=== PATIENT | male | born 1990 | race African-American/Black ===

== ENCOUNTER 2021-10-19 17:31 | Inpatient (IN) | payer SELFPAY ==
[2021-10-19] VITALS (12 sets, daily range): BP systolic 164–252; BP diastolic 120–185; PULSE 95–120; RESP 16–22; TEMP 36.6–36.9; O2SAT 91–98; BMI 34.4
--- NOTE | 2021-10-19 18:03 | ECG_ITS ---
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 Measurements Intervals [place] Rate: 110 P: 54 [place]: 153 QRS: 49 QRSD: 102 T: 198 QT: 364 QTc: 493 Interpretive Statements SINUS TACHYCARDIA LEFT ATRIAL ENLARGEMENT [-0.15mV P-WAVE IN V1/V2] NONSPECIFIC ST & T-WAVE ABNORMALITY No previous ECG available for comparison Electronically Signed On 10-19-2021 21:31:52 MATHEMATICS ACADEMIC CHAIR by Hillary Aguilar M.D. [id number]
--- NOTE | 2021-10-19 18:03 | XRR_ITS ---
PROCEDURE INFORMATION: Exam: XR Chest Exam date and time: 10/19/2021 6:03 PM Age: 31 years old Clinical indication: Chest wall pain; Additional info: SOB TECHNIQUE: Imaging protocol: XR of the chest. Views: 1 view. COMPARISON: No relevant prior studies available. FINDINGS: Lungs: See Heart/Mediastinum finding. Pleural spaces: Unremarkable. No pleural effusion. No pneumothorax. Heart/Mediastinum: Cardiomegaly and mild interstitial edema. Bones/joints: Unremarkable. XR/XR chest 1V portable [id number] IMPRESSION: Cardiomegaly and mild interstitial edema.
--- NOTE | 2021-10-19 18:09 | PC.NURSE ---
UNABLE TO OBTAIN B/P, UPDATED PRIMARY RN AND PHYSICIAN
--- NOTE | 2021-10-19 18:13 | ED_ITS ---
HPI - COVID General: Chief Complaint: COVID symptoms Stated Complaint: sob, congestion,dizzy,cough had covid 3 wks ago Time Seen by Provider: 10/19/21 18:01 Source: patient Mode of arrival: ambulatory Limitations: no limitations Triage information: Has fever, cough or shortness of breath . Exposure to COVID + person last 14 days History of Present Illness: 31-year-old male states that he was diagnosed with Covid 3 weeks ago. States he was doing and better he states he started having increasing shortness of breath of last 2 days he states much worse at night has been having wheezing and exertional dyspnea denies any fever denies any cough. No history of asthma has a history of high blood pressure denies any vomiting diarrhea and denies any hypoxia. COVID 19 common symptoms: positive dyspnea; negative fever(s), chills, body aches, headache(s), throat pain, nausea, vomiting or diarrhea COVID 19 other sytmptoms: negative chest pain COVID Results: No Data to Display Review of Systems Const: Denies: fever(s), chills, body aches or change in appetite Eyes: Denies: blurry vision or eye discomfort ENMT: Denies: throat pain or dental pain Card: Denies: chest pain Resp: Reports: dyspnea and wheezing GI: Denies: abdominal pain, nausea, vomiting or diarrhea : Denies: dysuria Musc: Denies: neck pain or back pain Skin/Breast: Denies: rash Neuro: Denies: headache(s) Psych: Denies: depression Suleman/Lymph: Denies: easy bruising All/Imm: Denies: urticaria PFSH ED PFSH: Medical History COVID-19 Social History Smoking and tobacco status: never smoked Substance/Drug Use: never Physical Exam Const: COMMON NORMALS: no acute distress, patient oriented x3 and healthy appearing HENMT: COMMON NORMALS: normocephalic and atraumatic HEAD & SCALP: normocephalic and atraumatic Eye: COMMON NORMALS: Equal, round and reactive pupils present and EOMs intact bilaterally PUPIL: Yes Equal, round and reactive pupils present Neck/C-Spine: COMMON NORMALS: full ROM and supple Chest: COMMONS NORMALS: normal inspection of the chest and normal palpation of entire chest wall Resp: COMMON NORMALS: normal respiratory effort, No retractions and No use of accessory muscles AUSCULTATION: wheezes Cardio: COMMON NORMALS: regular rate, regular rhythm and No murmurs present (Cardio) RATE: regular rate RHYTHM: regular rhythm GI: COMMON NORMALS: Normal to inspection, nondistended, normoactive bowel sounds present, Soft to palpation, non-tender and no masses PALPATION: Yes Soft to palpation Extremity: COMMON NORMALS: normal to inspection and full ROM Neuro: COMMON NORMALS: patient oriented x3, moves all extremities and no focal motor deficits Psych: COMMON NORMALS: mental status grossly normal, Normal thought process present and cooperative THOUGHT PROCESS: Normal thought process present Skin: COMMON NORMALS: no rashes or lesions noted and no wounds GENERAL SKIN EXAM: no rashes or lesions noted Course Vital Signs: Vital signs: Vital Signs Temperature 97.8 F 10/19/21 20:45 Pulse Rate 120 H 10/19/21 20:45 Respiratory Rate 18 10/19/21 20:45 Blood Pressure 251/170 10/19/21 20:45 Pulse Oximetry 97 10/19/21 20:45 MDM - COVID MDM Narrative Medical decision making narrative: Patient presents here with hypertensive emergency likely chronic hypertension causing his cardiomegaly dyspnea slight acute kidney injury does have elevated troponin as well been given him labetalol blood pressure is improving CT shows no signs of pulmonary embolism does have cardiomegaly spoke to hospitalist will admit at this time. Lab Data Result diagrams: 10/19/21 18:45 10/19/21 18:45 Labs: Radiology Impressions Chest X-Ray 10/19/21 18:03 IMPRESSION: Cardiomegaly and mild interstitial edema. Chest CTA 10/19/21 19:19 IMPRESSION: 1. Negative for pulmonary embolus or airspace infiltrate. 2. Cardiomegaly. 3. Scattered prominent nonspecific mediastinal lymph nodes measuring 2.1 cm, nonspecific. Laboratory Results WBC 6.3 10^3/uL (4.0-10.0) 10/19/21 18:45 RBC 5.00 10^6/uL (4.1-5.3) 10/19/21 18:45 Hgb 11.7 g/dL (11.7-16.6) 10/19/21 18:45 Hct 38.1 % (42.0-52.0) L 10/19/21 18:45 MCV 76.2 fl (80-94) L 10/19/21 18:45 MCH 23.4 pg (28.0-34.0) L 10/19/21 18:45 MCHC 30.7 g/dL (30.0-36.0) 10/19/21 18:45 RDW 18.3 % (12.1-15.1) H 10/19/21 18:45 Plt Count 305 10^3/cmm (130-400) 10/19/21 18:45 MPV 11.0 fL (7.4-10.4) H 10/19/21 18:45 Neut % (Auto) 68.6 % 10/19/21 18:45 Lymph % (Auto) 22.7 % 10/19/21 18:45 Milam % (Auto) 6.2 % 10/19/21 18:45 Eos % (Auto) 1.4 % 10/19/21 18:45 Baso % (Auto) 0.6 % 10/19/21 18:45 Neut # (Auto) 4.28 10^3/uL (1.8-7.7) 10/19/21 18:45 Lymph # (Auto) 1.4 10^3/uL (0.8-4.8) 10/19/21 18:45 Milam # (Auto) 0.4 10^3/uL (0.2-0.9) 10/19/21 18:45 Eos # (Auto) 0.1 10^3/uL (0.0-0.8) 10/19/21 18:45 Baso # (Auto) 0.0 10^3/uL (0.0-0.1) 10/19/21:45 Nucleated RBC % (auto) 0.3 % 10/19/21:45 Nucleated RBCs # 0.0 /100WBC 10/19/21 18:45 PT 14.10 SECONDS (12.1-14.9) 10/19/21 18:45 INR 1.06 (0.8-1.2) 10/19/21 18:45 D-Dimer 1.89 ug/mIFEU (0-0.59) H 10/19/21 18:45 Sodium 137 mmol/L (136-145) 10/19/21 18:45 Potassium 4.4 mmol/L (3.5-5.1) 10/19/21 18:45 Chloride 99 mmol/L (98-107) 10/19/21 18:45 Carbon Dioxide 25 mmol/L (22-29) 10/19/21 18:45 Anion Gap 17.4 (5-19) 10/19/21 18:45 BUN 16 mg/dL (6-20) 10/19/21 18:45 Creatinine 1.9 mg/dL (0.7-1.2) H 10/19/21 18:45 GFR Calculation 50.6 mL/min (90-130) L 10/19/21 18:45 Glucose 121 mg/dL (65-115) H 10/19/21 18:45 Calculated Osmolality 286 mOsm/kg (285-295) 10/19/21 18:45 Calcium 9.9 mg/dL (8.5-10.5) 10/19/21 18:45 Total Bilirubin 0.8 mg/dL (0.15-1.2) 10/19/21 18:45 AST 32 U/L (0-40) 10/19/21 18:45 ALT 66 U/L (0-41) H 10/19/21 18:45 Alkaline Phosphatase 100 IU/L (40-130) 10/19/21 18:45 Troponin T Baseline 64 ng/L (0-15) H 10/19/21 18:45 Troponin T 120 Minute 55.53 ng/L (0-15) H 10/19/21 20:47 Delta Troponin T -8.47 ABS# (0-10) L 10/19/21 20:47 NT-Pro-B Natriuret Pep 5733 pg/mL (0-125) H 10/19/21 18:45 Total Protein 7.0 g/dL (6.6-8.7) 10/19/21 18:45 Albumin 3.7 g/dL (3.5-5.2) 10/19/21 18:45 Globulin 3.3 g/dL (1.3-4.6) 10/19/21 18:45 COVID Results: No Data to Display Imaging Data CXR: Radiologist's impression: Cardiomegaly and mild interstitial edema EKG Data EKG 1: Attestation: I personally reviewed and interpreted this EKG as follows: EKG interpretation date: 10/19/21 EKG interpretation time: 19:05 Interpretation: sinus tach hr [address] or t wave abnormalities qrs 102 qtc 429 EKG 2: Attestation: I personally reviewed and interpreted this EKG as follows: EKG interpretation date: 10/19/21 EKG interpretation time: 20:12 Interpretation: sinus tach hr [address] or twave abnormalities LVH noted qrs 101 qtc 432 Critical Care Time Critical Care Time: Critical Care Time: Yes Total Critical Care Time: 35 Attestation: The high probability of a clinically significant, sudden or life threatening deterioration of the patient's [cv] system(s) required my full and direct attention, intervention and personal management. The critical care time is as shown. This time is in addition to time spent performing any reported procedures but includes the following: [x] Data and vital sign review and interpretation [x] Patient assessment, examination and intervention [x] Documentation [x] Medication orders and management Discharge Plan Discharge Patient Disposition: Admitted As Inpatient Clinical Impression: Hypertensive emergency, Dyspnea, Cardiomegaly Condition: Stable Coding Level of Care Code ED Gastroenterology Manager for Chg Fwd Exam Comprehensive
[2021-10-19] MEDS: ipratropium-albuterol 3 mL Neb INHALATION (18:44)
[2021-10-19 18:59] LABS: Basophils % 0.6 %; Eosinophils # 0.1 10^3/uL (0.0-0.8); Eosinophils % 1.4 %; Hematocrit 38.1 % (42.0-52.0); Hemoglobin 11.7 g/dL (11.7-16.6); Lymphocytes # 1.4 10^3/uL (0.8-4.8); Lymphocytes % 22.7 %; Mean Corpuscular HGB Conc 30.7 g/dL (30.0-36.0); Mean Corpuscular Hemoglobin 23.4 pg (28.0-34.0); Mean Corpuscular Volume 76.2 fl (80-94); Monocytes # 0.4 10^3/uL (0.2-0.9); Monocytes % 6.2 %; Neutrophils # 4.28 10^3/uL (1.8-7.7); Neutrophils % 68.6 %; Nucleated Red Blood Cells % 0.3 %; Platelet Count 305 10^3/cmm (130-400); Red Cell Distribution Width 18.3 % (12.1-15.1); White Blood Count 6.3 10^3/uL (4.0-10.0)
[2021-10-19 19:10] LABS: INR 1.06 (0.8-1.2)
[2021-10-19 19:13] LABS: D Dimer 1.89 ug/mIFEU (0-0.59)
--- NOTE | 2021-10-19 19:19 | CTR_ITS ---
PROCEDURE INFORMATION: Exam: CTA Chest With Contrast Exam date and time: 10/19/2021 7:19 PM Age: 31 years old Clinical indication: Shortness of breath; Patient HX: Post covid C/O SOB TECHNIQUE: Imaging protocol: Computed tomographic angiography of the chest with contrast. 3D rendering (Not supervised by radiologist): MIP and/or 3D reconstructed images were created by the technologist. Radiation optimization: All CT scans at this facility use at least one of these dose optimization techniques: automated exposure control; mA and/or kV adjustment per patient size (includes targeted exams where dose is matched to clinical indication); or iterative reconstruction. Contrast material: VISI 320; Contrast volume: 190 ml; Contrast route: INTRAVENOUS (IV); COMPARISON: CR (CHEST, ) 10/19/2021 7:10 PM RADIATION DOSE METRICS: Total DLP (mGy-cm): 568.24 FINDINGS: Pulmonary arteries: Normal. No pulmonary emboli. Aorta: Unremarkable. No aortic aneurysm. No aortic dissection. Lungs: Unremarkable. No consolidation. No masses. Pleural spaces: Unremarkable. No pneumothorax. No pleural effusion. Heart: Cardiomegaly. Lymph nodes: Scattered prominent nonspecific mediastinal lymph nodes measuring 2.1 cm, nonspecific. Bones/joints: Unremarkable. No acute fracture. Soft tissues: Unremarkable. CT/CT angio chest PE protcl [id number] IMPRESSION: 1. Negative for pulmonary embolus or airspace infiltrate. 2. Cardiomegaly. 3. Scattered prominent nonspecific mediastinal lymph nodes measuring 2.1 cm, nonspecific.
[2021-10-19 19:25] LABS: Alanine Aminotransferase 66 U/L (0-41); Albumin Level 3.7 g/dL (3.5-5.2); Alkaline Phosphatase 100 IU/L (40-130); Anion Gap 17.4 (5-19); Aspartate Amino Transferase 32 U/L (0-40); Blood Urea Nitrogen 16 mg/dL (6-20); Calcium 9.9 mg/dL (8.5-10.5); Carbon Dioxide 25 mmol/L (22-29); Chloride 99 mmol/L (98-107); Globulin 3.3 g/dL (1.3-4.6); Glomerular Filtration Rate 50.6 mL/min (90-130); Glucose 121 mg/dL (65-115); NT Pro B Type Natriuretic Pept 5733 pg/mL (0-125); Osmolality Calculated 286 mOsm/kg (285-295); Potassium 4.4 mmol/L (3.5-5.1); Sodium 137 mmol/L (136-145); Total Bilirubin 0.8 mg/dL (0.15-1.2)
--- NOTE | 2021-10-19 19:29 | ECG_ITS ---
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 Measurements Intervals [place] Rate: 111 P: 53 [place]: 159 QRS: 55 QRSD: 101 T: 214 QT: 366 QTc: 499 Interpretive Statements SINUS TACHYCARDIA POSSIBLE RIGHT ATRIAL ENLARGEMENT [0.25mV P-WAVE] POSSIBLE LEFT ATRIAL ENLARGEMENT [-0.1mV P-WAVE IN V1/V2] LEFT VENTRICULAR HYPERTROPHY AND ST-T CHANGE [VOLTAGE CRITERIA PLUS ST/T ABNORMALITY] Compared to ECG 10/19/2021 19:05:55 Left ventricular hypertrophy now present ST (T wave) deviation now present T-wave abnormality no longer present Electronically Signed On 10-19-2021 21:26:32 HEARING CARE PROFESSIONAL by Hillary Aguilar M.D. [id number]
[2021-10-19 19:49] LABS: Troponin(5th) Baseline 64 ng/L (0-15)
[2021-10-19] MEDS: hyDRALAzine 20 mg/mL INJ 1 mL IVP (20:01)
[2021-10-19] MEDS: FUROsemide 10 mg/mL SDV 4mL 40 MG IVP (20:02)
[2021-10-19] MEDS: ondansetron 2 mg/ML SDV 2 mL 4 MG IVP (20:02)
[2021-10-19] MEDS: morphine 4 mg/mL SDV 1 mL IVP (20:02)
[2021-10-19] MEDS: iodixanol 320 mg/mL 100mL Btl IV (20:40)
[2021-10-19 21:11] LABS: Troponin 5 2HR 55.53 ng/L (0-15)
[2021-10-19] MEDS: labetalol 5 mg/mL SDV 20mL 10 MG IVP (21:13)
[2021-10-19] MEDS: nitroglycerin 0.4 mg sublingual Tablet SUBLINGUAL (21:13)
--- NOTE | 2021-10-19 21:29 | ECG_ITS ---
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 Measurements Intervals [place] Rate: 91 P: 19 [place]: 147 QRS: 54 QRSD: 100 T: 187 QT: 402 QTc: 497 Interpretive Statements SINUS RHYTHM LEFT VENTRICULAR HYPERTROPHY AND ST-T CHANGE [VOLTAGE CRITERIA PLUS ST/T ABNORMALITY] Compared to ECG 10/19/2021 20:12:27 Sinus tachycardia no longer present ST (T wave) deviation still present Electronically Signed On 10-21-2021 0:12:16 AUTO MACHINIST by Bonnie Jc M.D. [id number]
--- NOTE | 2021-10-19 21:57 | P.HP_ITS ---
Providers/Chief Complaint Chief Complaint: sob, congestion,dizzy,cough had covid 3 wks ago History of Present Illness Mona Yuan is a 31 year old male with a past medical history of hype rtension, recent history of COVID-19 infection, who presents to [facility] due to increasing shortness of breath, chest pain, lightheadedness. Patient tells me that he tested positive for Covid over 2 weeks ago, since He has been experiencing increasing shortness of breath, increasing shortness of breath with exertion, and substernal chest pain. He also been experiencing increased lower extremity edema. Denies any cardiovascular history, no history of CVA, chest pain is typically substernal, nonradiating, lasting a few minutes, associate with shortness of breath and lightheadedness. No diaphoresis. Denies any slurred speech, no paresthesias, no focal weakness. Denies smoking. No history of drug use. No history of alcohol use. Patient presented to [facility] was found to have hypertensive emergency with baseline troponin of 66, evidence of LVH, nonspecific ST-T wave changes, no acute ST elevation, BNP 5733, CTA no pulmonary embolism, cardiomegaly, blood pressure on admission 252/185, was given nitroglycerin, labetalol, Lasix, currently blood pressure 164 /120. Review of Systems Const: Denies: fever(s), chills, fatigue or malaise Eyes: Denies: change in vision or blurry vision ENMT: Denies: nasal congestion Card: Reports: chest pain, edema and dyspnea on exertion Resp: Reports: dyspnea; Denies: productive cough, non-productive cough or wheezing GI: Denies: abdominal pain, nausea, vomiting, hematemesis, diarrhea, const ipation, hematochezia or melena : Denies: flank pain, difficulty urinating, dysuria or urinary frequency Musc: Denies: neck pain or back pain Skin/Breast: Denies: rash Neuro: Denies: headache(s), dizziness or vertigo Psych: Denies: anxiety or depression Endo: Denies: polyuria or polydipsia Medications/Allergies Allergies Allergy/AdvReac Type Severity Reaction Status Date / Time kiwi Allergy ALGY-Anaphy Verified 10/19/21 17:43 laxis PFSH Acute PFSH: Medical History COVID-19 Social History Smoking and tobacco status: never smoked Substance/Drug Use: never Vitals/I&O/Wt Last Vital Signs Temp 98.1 F 10/19/21 21:34 Pulse 95 10/19/21 21:34 Resp 18 10/19/21 21:34 BP 164/120 10/19/21 21:34 Pulse Ox 96 10/19/21 21:34 Weight last 48 hrs Weight 131.542 kg Physical Exam Const: COMMON NORMALS: no acute distress and patient oriented x3 GENERAL APPEARANCE: cooperative, well kempt and well developed HENMT: COMMON NORMALS: normocephalic and Normal external nose present HEAD & SCALP: normocephalic FACE & SINUS: normal facial exam NOSE: Normal external nose present MOUTH: Normal oral and palatal mucosa present Eye: COMMON NORMALS: Equal, round and reactive pupils present, EOMs intact bilaterally, conjunctivae normal and no scleral icterus CONJUNCTIVA: Yes conjunctivae normal PUPIL: Yes Equal, round and reactive pupils present Neck/C-Spine: COMMON NORMALS: full ROM, no lymphadenopathy, no meningeal signs, no JVD, Thyroid normal and No carotid bruits THYROID: Thyroid normal Lymph: LYMPHATIC: no lymphadenopathy noted Chest: COMMONS NORMALS: normal inspection of the chest Resp: COMMON NORMALS: normal respiratory effort, No retractions, No use of accessory muscles and clear to auscultation bilaterally AUSCULTATION: clear to auscultation bilaterally Cardio: COMMON NORMALS: regular rate, regular rhythm, S1 normal heart sound present, S2 normal heart sound present, No murmurs present (Cardio) and Peripheral pulses 2+ throughout RATE: regular rate RHYTHM: regular rhythm HEART SOUNDS: S1 normal heart sound present and S2 normal heart sound present PERIPHERAL PULSES: Peripheral pulses 2+ throughout GI: COMMON NORMALS: Normal to inspection, nondistended, normoactive bowel sounds present, Soft to palpation, non-tender and No hepatosplenomegaly present PALPATION: Yes Soft to palpation and Yes No hepatosplenomegaly present : COMMON NORMALS: Yes no CVA tenderness BLADDER/KIDNEY EXAM: Yes no CVA tenderness Back/Pelvis: COMMON NORMALS: no CVA tenderness Extremity: COMMON NORMALS: normal to inspection, full ROM, capillary refill normal and no calf tenderness Neuro: COMMON NORMALS: patient oriented x3, CN's II-XII intact bilaterally, moves all extremities, no focal motor deficits and no sensory deficits noted Psych: COMMON NORMALS: mental status grossly normal, Normal thought process present, cooperative and speech normal APPEARANCE: Yes well kempt SPEECH: Yes normal speech THOUGHT PROCESS: Normal thought process present Skin: COMMON NORMALS: turgor normal and no jaundice NARRATIVE SKIN EXAM: 1+ pitting edema bilaterally GENERAL SKIN EXAM: turgor normal Data : 10/19/21 18:45 10/19/21 18:45 A&P Assessment and plan (1) Hypertensive emergency: Status: Acute (2) NSTEMI (non-ST elevated myocardial infarction): Status: Acute (3) KIMMY (acute kidney injury): Status: Acute Plan Hypertensive emergency -Goals lower MAP by 25 to 30% in the first hour -Goal less than 160/100 -CT of the head to evaluate for possible CVA although unlikely -Cardiac echocardiogram, given elevated BNP, chest pain complaints, elevated troponin, -Renal ultrasound given KIMMY -Start Norvasc 10 mg daily -We will add on blood pressure medications as needed -We will consider adding on nitro or Cardene drip patient blood pressure -TSH, renin, aldosterone Acute kidney injury -Creatinine 1.9, baseline creatinine unknown -Likely hypertensive -Given lower extreme edema avoid fluids -Monitor lower extreme edema -Lasix was given in the ER, contrast was given in ER, monitor creatinine, monitor urine output NSTEMI -Likely associated with hypertensive emergency -Baseline troponin 64 -No acute ST-T wave changes -Has nonspecific ST-T wave changes, LVH -Serial troponins, serial EKGs -Aspirin, statin -Cardiac echo -Telemetry monitoring -Possible COVID-19 associated myocarditis? Elevated BNP -Likely related to hypertensive history of COVID-19 -Currently asymptomatic, today will be his last day of isolation Attestations Medical Necessity Statement*: Patient requires hospitalization, inpatient, greater than 2 midnights, for hypertensive emergency, NSTEMI, KIMMY, elevated BNP Coding Level of Care Code New Pt Acute Coordinator Of Online Programs for Chg Fwd Patient Type New History Comprehensive Exam Comprehensive Medical Decision Making High Complexity Diagnoses Hypertensive emergency I16.1 NSTEMI (non-ST elevated myocardial infarction) I21.4 KIMMY (acute kidney injury) N17.9
--- NOTE | 2021-10-19 23:30 | CTR_ITS ---
PROCEDURE INFORMATION: Exam: CT Head Without Contrast Exam date and time: 10/19/2021 11:30 PM Age: 31 years old Clinical indication: Dizziness; Patient HX: C/O of being lightheaded. TECHNIQUE: Imaging protocol: Computed tomography of the head without contrast. Radiation optimization: All CT scans at this facility use at least one of these dose optimization techniques: automated exposure control; mA and/or kV adjustment per patient size (includes targeted exams where dose is matched to clinical indication); or iterative reconstruction. COMPARISON: No relevant prior studies available. RADIATION DOSE METRICS: Total DLP (mGy-cm): 729.5 FINDINGS: Brain: No suggestion of edema in the brain considering the motion artifacts. Minimal chronic cerebral white matter disease not excluded. No intracranial hemorrhage. Cerebral ventricles: No ventriculomegaly. Paranasal sinuses: No air-fluid levels or significant mucosal thickening in the visualized paranasal sinuses. Mastoid air cells: Visualized mastoids unremarkable. Bones/joints: Unremarkable. No acute fracture. Soft tissues: Unremarkable. CT/CT head wo con* [id number] IMPRESSION: No acute findings.
[2021-10-19 23:50] LABS: Estmated Average Glucose 134; Hemoglobin A1C 6.3 % (4.0-6.0)
[2021-10-19 23:55] LABS: Chol HDL Ratio 4.14 mg/dL (1.0-5.00); Cholesterol 153 mg/dL (0-200); HDL Cholesterol 37 mg/dL (60-100); LDL Cholesterol Calculated 88 mg/dL (50-129); LDL HDL Ratio 2.38 RATIO (0.00-3.22); Thyroid Stimulating Hormone 6.27 uIU/mL (0.27-4.20); Triglycerides 141 mg/dL (0-150)
[2021-10-20] VITALS (13 sets, daily range): BP systolic 135–268; BP diastolic 77–169; PULSE 78–106; RESP 16–24; TEMP 36.6–37.1; O2SAT 92–99; BMI 34.4
[2021-10-20] MEDS: heparin 5,000 unit/mL INJ 1 mL 5000 UNIT SUBCUT ×3 (00:23→23:41)
[2021-10-20 01:10] LABS: Basophils # 0.1 10^3/uL (0.0-0.1); Basophils % 0.8 %; Eosinophils # 0.2 10^3/uL (0.0-0.8); Hematocrit 38.2 % (42.0-52.0); Hemoglobin 11.8 g/dL (11.7-16.6); Lymphocytes # 1.8 10^3/uL (0.8-4.8); Lymphocytes % 23.1 %; Mean Corpuscular HGB Conc 30.9 g/dL (30.0-36.0); Mean Corpuscular Hemoglobin 23.6 pg (28.0-34.0); Mean Corpuscular Volume 76.2 fl (80-94); Monocytes # 0.6 10^3/uL (0.2-0.9); Neutrophils # 5.25 10^3/uL (1.8-7.7); Neutrophils % 66.5 %; Nucleated Red Blood Cells % 0.3 %; Platelet Count 309 10^3/cmm (130-400); Red Blood Count 5.01 10^6/uL (4.1-5.3); Red Cell Distribution Width 18.6 % (12.1-15.1); White Blood Count 7.9 10^3/uL (4.0-10.0)
[2021-10-20] MEDS: amlodipine 10 mg Tablet PO ×2 (01:20→08:26)
--- NOTE | 2021-10-20 01:22 | PC.NURSE ---
called Dr Crane about b/p and he requested me to give noravasc and then wait 30 minutes and recheck B/P
[2021-10-20 01:37] LABS: Troponin 5 6HR 68.83 ng/L (0-15)
[2021-10-20 01:38] LABS: Alanine Aminotransferase 66 U/L (0-41); Alkaline Phosphatase 105 IU/L (40-130); Anion Gap 18.7 (5-19); Aspartate Amino Transferase 31 U/L (0-40); Blood Urea Nitrogen 15 mg/dL (6-20); Calcium 9.7 mg/dL (8.5-10.5); Carbon Dioxide 25 mmol/L (22-29); Chloride 98 mmol/L (98-107); Globulin 3.4 g/dL (1.3-4.6); Glomerular Filtration Rate 57.5 mL/min (90-130); Glucose 114 mg/dL (65-115); Magnesium 1.9 mg/dL (1.7-2.3); Osmolality Calculated 288 mOsm/kg (285-295); Phosphorus 3.9 mg/dL (2.5-4.5); Potassium 3.7 mmol/L (3.5-5.1); Sodium 138 mmol/L (136-145); Total Protein 7.4 g/dL (6.6-8.7)
[2021-10-20 01:39] LABS: Troponin 5 6HR Delta 4.83 ng/L (0-12)
[2021-10-20 01:52] LABS: Creatine Phosphokinase 98 U/L (39-308); NT Pro B Type Natriuretic Pept 5196 pg/mL (0-125)
[2021-10-20] MEDS: cloNIDine 0.1 mg Tablet PO (03:55)
[2021-10-20] MEDS: labetalol 5 mg/mL SDV 20mL 10 MG IVP (03:56)
[2021-10-20] MEDS: perflutren protein-a microsphr 0.22 mg/mL SDV 3 mL IV (07:58)
[2021-10-20] MEDS: aspirin 81 mg EC Tablet PO (08:25)
[2021-10-20] MEDS: docusate sodium 100 mg Capsule PO ×2 (08:25→17:42)
[2021-10-20] MEDS: famotidine 20 mg Tablet PO ×2 (08:25→17:42)
[2021-10-20] MEDS: metoprolol tartrate 25 mg Tablet PO ×2 (08:25→21:01)
[2021-10-20] MEDS: hyDRALAzine 25 mg Tablet PO ×3 (08:26→21:58)
[2021-10-20] MEDS: nicardipine 20 MG/200 ML PREMIX 150 MG IV (08:40)
--- NOTE | 2021-10-20 09:16 | PC.NURSE ---
C/O of chest pain. Informed Dr Ricci of chest pain and lower BP . Verbal order to stop Cardene
[2021-10-20 09:17] LABS: Amphetamines Screen Urine Negative (Negative); Barbiturates Screen Urine Negative (Negative); Benzodiazepines Screen Urine Negative (Negative); Cocaine Screen Urine Negative (Negative); Opiate Screen Urine Negative (Negative); PCP Screen Urine Negative (Negative); THC Screen Urine Negative (Negative)
--- NOTE | 2021-10-20 12:19 | P.PN_ITS ---
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 Denies drug abuse Vitals/I&O/Wt Last Vital Signs Temp 98.1 F 10/19/21 22:54 Pulse 93 10/20/21 09:19 Resp 19 H 10/20/21 09:19 BP 135/77 10/20/21 09:19 Pulse Ox 97 10/20/21 09:19 10/19/21 10/20/21 10/20/21 22:59 06:59 14:59 Intake Total 92.5 / 92.5 Balance 92.5 / 92.5 Weight last 48 hrs Weight 131.542 kg Physical Exam Narrative: EXAM NARRATIVE: Morbid obese male S1, S2 Signs of congestive heart failure 3+ pitting edema bilateral lower extremities EOMI, PERRLA Nonfocal neuro exam Awake and alert Saturating well on room air Bilateral breath sounds no active rhonchi or wheezing Data : 10/20/21 00:56 10/20/21 00:56 A&P Assessment and plan (1) KIMMY (acute kidney injury): Status: Acute (2) NSTEMI (non-ST elevated myocardial infarction): Status: Acute (3) Hypertensive emergency: Status: Acute (4) Dyspnea: Status: Acute (5) Cardiomegaly: Status: Acute (6) COVID-19: Status: Acute (7) Acute CHF: Status: Acute Plan New onset CHF Endorsing orthopnea PND and weight gain, follow-up with echo Twelve-lead EKG unremarkable Troponin without significant delta Check drug screen Hypertensive emergency with endorgan damage CHF and KIMMY Patient's blood pressure very labile Will need 3-4 antihypertensive including a diuretic renin Aldosterone ratio is pending Borderline diabetes hemoglobin A1c 6.3 will need Metformin at the time of discharge Does not have a PCP KIMMY related to hypertensive emergency, check protein in urine DVT prophylaxis: Heparin Cardiac diet Full code Type II [place] related to hypertensive emergency, Attestations Medical Necessity Statement*: New onset CHF investigation is Coding Level of Care Code Acute Sharepoint Solutions Developer for Chg Fwd History Expanded Problem Focused Exam Expanded Problem Focused Medical Decision Making Moderate Complexity Diagnoses KIMMY (acute kidney injury) N17.9 NSTEMI (non-ST elevated myocardial infarction) I21.4 Hypertensive emergency I16.1 Dyspnea R06.00 Cardiomegaly I51.7 COVID-19 U07.1 Acute CHF I50.9 Time Spent (min) 15
[2021-10-20] MEDS: potassium chloride ER 20 mEq Tablet PO (13:17)
--- NOTE | 2021-10-20 14:03 | PC.NURSE ---
Patient arrived from ER. Patient blood pressure is elevated, HR is WNL along with other VS. Patient and family member have been oriented to room and atmosphere. No questions or concerns. Nurse will continue to monitor.
--- NOTE | 2021-10-20 16:07 | ECG_ITS ---
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 Measurements Intervals [place] Rate: 94 P: 26 [place]: 120 QRS: 65 QRSD: 102 T: 160 QT: 407 QTc: 510 Interpretive Statements SINUS RHYTHM LEFT VENTRICULAR HYPERTROPHY AND ST-T CHANGE [VOLTAGE CRITERIA PLUS ST/T ABNORMALITY] Compared to ECG 10/20/2021 09:23:19 No significant changes Electronically Signed On 10-21-2021 0:13:50 PICKLE CUTTER by Bonnie Jc M.D. [email or web address])[email or web address] [email or web address] [id number]
[2021-10-20] MEDS: hyDRALAzine 20 mg/mL INJ 1 mL 10 MG IVP ×2 (16:19→23:41)
[2021-10-20] MEDS: bumetanide 0.25 mg/mL SDV 4 mL 1 MG IVP (16:20)
[2021-10-20] MEDS: acetaminophen 325 mg Tablet 650 MG PO (17:47)
[2021-10-20] MEDS: atorvastatin 40 mg Tablet PO (21:02)
--- NOTE | 2021-10-20 23:30 | US_ITS ---
WS: [id number] RENAL ULTRASOUND HISTORY: lisbet COMPARISON: None available. TECHNIQUE: 2-D and color Doppler imaging of the kidney submitted. Technically very limited evaluation of the kidneys due to body habitus. Right kidney: 11.1 cm x 6.2 cm x 4.7 cm. Normal size kidney. Very limited evaluation of the kidneys. No hydronephrosis identified. This study would be difficult to exclude masses. Left kidney: 12.5 cm x 5.7 cm x 5.3 cm. Normal size kidney. No hydronephrosis. Mass would be difficult to exclude. Aorta: Not visualized. Urinary Bladder: Markedly distended bladder. No intraluminal filling defect. US/US renal BI* [id number] IMPRESSION: 1. Technically very limited evaluation of the kidneys due to body habitus. 2. No hydronephrosis.
--- NOTE | 2021-10-20 23:30 | USCV_ITS ---
Mona Yuan Age: 31 Gender: M : 1990 Exam Date: 10/20/2021 06:57 Ordering Phys: Robby Crane MD Technologist: CK1 Exam Location: [facility] – [place] Indication: HTN SEVERE BP: 220 / 122 HR: 103 Rhythm: Sinus Technical Quality: Adequate MEASUREMENTS (Male / Female) Normal Values 2D ECHO LV Diastolic Diameter PLAX 2.8 cm 4.2 - 5.9 / 3.9 - 5.3 cm LV Systolic Diameter PLAX 1.9 cm IVS Diastolic Thickness 3.0 cm 0.6 - 1.0 / 0.6 - 0.9 cm IVS Systolic Thickness 3.7 cm LVPW Diastolic Thickness 3.2 cm 0.6 - 1.0 / 0.6 - 0.9 cm LVPW Systolic Thickness 3.6 cm LVOT Diameter 2.2 cm LV Ejection Fraction 2D Teich 62.4 % LV Ejection Fraction MOD 2C 65.7 % LV Ejection Fraction 2C AL 64.9 % LA Diameter 4.5 cm Aorta at Sinotubular Diameter 2.6 cm M-MODE Aortic Annulus Diameter 3.6 cm LA Ao Ratio MM 1.3 MV E Point Septal Separation 0.4 cm DOPPLER AV Peak Velocity 138.0 cm/s LVOT Peak Velocity 98.0 cm/s AV Area Cont Eq vti 3.0 cm squared AV Area Cont Eq pk 2.8 cm squared MV Area PHT 5.0 cm squared Mitral E to A Ratio 1.8 MV E' Velocity 61.4 cm/s Mitral E to MV E' Ratio 18.8 Mitral E to LV E' Lateral Ratio 23.4 Mitral E to LV E' Septal Ratio 15.7 TR Peak Velocity 299.0 cm/s TR Peak Gradient 35.8 mmHg TV Peak E Velocity 91.0 cm/s Right Atrial Pressure 8.0 mmHg Pulmonary Artery Systolic Pressu 43.8 mmHg RV Acceleration Time 0.1 s FINDINGS Left Ventricle Small left ventricular cavity size. Markedly increased left ventricular wall thickness. Severe concentric left ventricular hypertrophy. Normal left ventricular systolic function. Left ventricular ejection fraction is estimated at 65%. No regional wall motion abnormalities. Right Ventricle Normal right ventricular size and systolic function. Right ventricular systolic pressure 43.8 mmHg. Right Atrium Normal right atrial size. Left Atrium Left atrium not well visualized. Mitral Valve Mitral valve not well visualized. Aortic Valve Aortic valve not well visualized. No aortic valve stenosis. Tricuspid Valve Tricuspid valve not well visualized. Mild tricuspid valve regurgitation. Pulmonic Valve Pulmonic valve not well visualized. Pericardium No pericardial effusion. Aorta Aorta not well visualized. CONCLUSIONS 1. This is a technically difficult study. Ultrasound enhancing agent Optison was used per protocol. 2. Small left ventricular cavity size. Markedly increased left ventricular wall thickness. Severe concentric left ventricular hypertrophy. Normal left ventricular systolic function. Left ventricular ejection fraction is estimated at 65%. No regional wall motion abnormalities. 3. Normal right ventricular size and systolic function. 4. Moderate pulmonary hypertension with pulmonary pressure estimated at 44 mmHg. 5. No prior similar studies to compare. Hillary Aguilar MD (Electronically Signed) Final Date: 20 October 2021 17:44 S
[2021-10-21] VITALS (68 sets, daily range): BP systolic 125–210; BP diastolic 68–145; PULSE 76–96; RESP 16–24; TEMP 36.6–37; O2SAT 95–99
--- NOTE | 2021-10-21 00:30 | PC.NURSE ---
Patient complaints of not feeling well. Patient given hydralazine IV prior for bp. Educated patient that his bp being as high as it was could cause a CVA and to use urinal for urination as if he feels dizzy, he could fall. Patient in agreement. in the room.
[2021-10-21] MEDS: acetaminophen 325 mg Tablet 650 MG PO (01:48)
[2021-10-21 03:49] LABS: Basophils % 0.7 %; Eosinophils # 0.2 10^3/uL (0.0-0.8); Hematocrit 35.3 % (42.0-52.0); Hemoglobin 10.8 g/dL (11.7-16.6); Lymphocytes # 1.5 10^3/uL (0.8-4.8); Mean Corpuscular HGB Conc 30.6 g/dL (30.0-36.0); Mean Corpuscular Hemoglobin 23.5 pg (28.0-34.0); Mean Corpuscular Volume 76.9 fl (80-94); Mean Platelet Volume 11.2 fL (7.4-10.4); Monocytes # 0.4 10^3/uL (0.2-0.9); Monocytes % 7.1 %; Neutrophils # 3.75 10^3/uL (1.8-7.7); Neutrophils % 63.5 %; Nucleated Red Blood Cells % 0.3 %; Platelet Count 307 10^3/cmm (130-400); Red Blood Count 4.59 10^6/uL (4.1-5.3); Red Cell Distribution Width 18.7 % (12.1-15.1); White Blood Count 5.9 10^3/uL (4.0-10.0)
[2021-10-21] MEDS: hyDRALAzine 20 mg/mL INJ 1 mL 10 MG IVP ×2 (04:15→09:30)
[2021-10-21 04:16] LABS: Alanine Aminotransferase 58 U/L (0-41); Albumin Level 3.6 g/dL (3.5-5.2); Alkaline Phosphatase 107 IU/L (40-130); Anion Gap 16.9 (5-19); Aspartate Amino Transferase 26 U/L (0-40); Blood Urea Nitrogen 18 mg/dL (6-20); Calcium 9.3 mg/dL (8.5-10.5); Carbon Dioxide 25 mmol/L (22-29); Chloride 97 mmol/L (98-107); Globulin 3.1 g/dL (1.3-4.6); Glomerular Filtration Rate 47.7 mL/min (90-130); Glucose 137 mg/dL (65-115); Osmolality Calculated 284 mOsm/kg (285-295); Phosphorus 3.6 mg/dL (2.5-4.5); Potassium 3.9 mmol/L (3.5-5.1); Sodium 135 mmol/L (136-145); Total Bilirubin 0.5 mg/dL (0.15-1.2); Total Protein 6.7 g/dL (6.6-8.7)
[2021-10-21 04:21] LABS: NT Pro B Type Natriuretic Pept 2733 pg/mL (0-125)
--- NOTE | 2021-10-21 04:44 | PC.NURSE ---
Patient bp elevated throughout the night. Patient given 2 doses of prn hydralazine IV per prn orders. Patient complaints of headaches when bp is lower than he is used to. Tylenol given x2 doses. Patient states relief. Will continue to monitor.
--- NOTE | 2021-10-21 04:48 | PC.NURSE ---
Shift Note Frequent safety and comfort rounds continue. Orders and/or nursing care completed as indicated. Patient monitored for response to intervention and treatment(s). Education provided includes reasons that elevated bp is dangerous. Patient and/or software support representative verbalizes understanding. Will continue to monitor.
[2021-10-21] MEDS: hyDRALAzine 25 mg Tablet PO ×3 (05:47→22:56)
--- NOTE | 2021-10-21 06:00 | ECG_ITS ---
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 Measurements Intervals [facility] Rate: 92 P: 48 ND: 153 QRS: 69 QRSD: 102 T: -79 QT: 402 QTc: 497 Interpretive Statements SINUS RHYTHM POSSIBLE LEFT ATRIAL ENLARGEMENT [-0.1mV P-WAVE IN V1/V2] LEFT VENTRICULAR HYPERTROPHY AND ST-T CHANGE [VOLTAGE CRITERIA PLUS ST/T ABNORMALITY] Compared to ECG 10/20/2021 16:39:49 No significant changes Electronically Signed On 10-21-2021 22:33:07 COMMERCIAL AGENT by Hillary Aguilar M.D. [id number]
[2021-10-21 07:29] LABS: Creatinine Urine, Random 168 mg/dL (39-259)
[2021-10-21 07:43] LABS: Microalbum Creatinine Ratio Ur 446 mg/dL (0-20); Microalbumin Random Urine 75 ug/dL (0-20)
[2021-10-21] MEDS: potassium chloride ER 20 mEq Tablet PO (08:21)
[2021-10-21] MEDS: aspirin 81 mg EC Tablet PO (08:22)
[2021-10-21] MEDS: metoprolol tartrate 25 mg Tablet PO ×2 (08:22→19:33)
[2021-10-21] MEDS: nitroglycerin 1 gm/inch oint Pkt 1 INCH TOPICAL ×2 (08:22→14:27)
[2021-10-21] MEDS: FUROsemide 40 mg Tablet PO (08:22)
[2021-10-21] MEDS: amlodipine 10 mg Tablet PO (08:22)
[2021-10-21] MEDS: heparin 5,000 unit/mL INJ 1 mL 5000 UNIT SUBCUT ×2 (11:49→22:56)
--- NOTE | 2021-10-21 15:26 | PM.PN ---
Subjective Subjective: Interval history: Patient is still hypertensive, might add low-dose Cardene Patient stating that he becomes lightheaded and nauseous whenever his blood pressure drops below 160s We will request MRI head to rule out press T4 is normal abnormal TSH Drug screen unremarkable No active chest pain Overnight events noted Echo did not show reduced action fraction Pulmonary hypertension Will need outpatient sleep study Vitals/I&O/Wt Last Vital Signs Temp 98.6 F 10/21/21 09:05 Pulse 91 10/21/21 09:05 Resp 18 10/21/21 09:05 BP 182/98 10/21/21 09:05 Pulse Ox 95 10/21/21 09:05 10/21/21 10/21/21 10/21/21 06:59 14:59 22:59 Intake Total 300 / 688.5 236 / 236 Output Total 600 / 1400 850 / 850 Balance -300 / -711.5 -614 / -614 Weight last 48 hrs Weight 131.542 kg Weight 131.542 kg Physical Exam Narrative: EXAM NARRATIVE: Patient was sleeping in left lateral position Saturating well on room air Nonfocal neuro exam Awake and alert S1, S2 No murmur Signs of heart failure Bilateral lower extremity edema Data : 10/21/21 02:16 10/21/21 02:16 A&P Assessment and plan (1) Acute CHF: Status: Acute (2) KIMMY (acute kidney injury): Status: Acute (3) NSTEMI (non-ST elevated myocardial infarction): Status: Acute (4) Hypertensive emergency: Status: Acute (5) Dyspnea: Status: Acute (6) Cardiomegaly: Status: Acute Plan Acute CHF, per echo, preserved E fraction heart failure Will need outpatient sleep study Continue Lasix Adequate urine output No active signs of ischemia or infarction No active chest pain KIMMY most likely related to cardiorenal syndrome anticipating provement with diuresis Hypertensive emergency with endorgan damage Patient experiencing lightheadedness, headache, proteinuria, kidney damage No signs of hydronephrosis, Might add Cardene low-dose today MRI head to rule out press syndrome Shortness of breath improved with diuresis. Normal T4, sick euthyroid syndrome Drug screen unremarkable Prediabetic, will need Metformin at the time of discharge, Full code Cardiac diet DVT prophylaxis on board Attestations Medical Necessity Statement*: Blood pressure still not optimal, continue hospitalization Time Spent in Patient Care: 15 Coding Level of Care Code Acute Material Handler 2Nd Shift for Chg Fwd Diagnoses Acute CHF I50.9 KIMMY (acute kidney injury) N17.9 NSTEMI (non-ST elevated myocardial infarction) I21.4 Hypertensive emergency I16.1 Dyspnea R06.00 Cardiomegaly I51.7
[2021-10-21] MEDS: famotidine 20 mg Tablet PO (17:26)
[2021-10-21] MEDS: guaiFENesin-dextromethorphan UDC 10 mL PO (18:50)
[2021-10-21] MEDS: acetaminophen-codeine 300-30mg Tablet 1 TAB PO (18:50)
[2021-10-21] MEDS: nicardipine 20 MG/200 ML PREMIX 50 MG IV (18:50)
[2021-10-21] MEDS: atorvastatin 40 mg Tablet PO (19:33)
--- NOTE | 2021-10-21 19:33 | PC.NURSE ---
bp remains high despite numerous po antihypertensives and ntg paste.cardene drip initiated at 1900 as ordered.pt states he has been dizzy at times during the day when laying with his eyes closed.also c/o nonproductive cough..and when he does cough...gets head pain.
[2021-10-21] MEDS: nicardipine 20 MG/200 ML PREMIX 100 MG IV (21:30)
--- NOTE | 2021-10-21 21:37 | PC.NURSE ---
Patient c/o dizziness while laying in bed. Patient states when I close my eyes and then open them, I get dizzy. This occurs while patient is laying in bed without movement. Patient states he was dizzy prior to Cardene drip being started and that the dizziness has not worsened since the drip has been started.
--- NOTE | 2021-10-21 23:06 | PC.NURSE ---
Dr. Crane notified that patient is stating dizziness is becoming untolerable. Notified that patient has Cardene drip running at 5 with blood pressure of 168/89. Patient is also c/o shortness of breath. Lungs sounds clear and oxygen saturation 99 percent on room air. Ordered to give 25 mg Meclizine x1.
[2021-10-21] MEDS: ondansetron 2 mg/ML SDV 2 mL 4 MG IVP (23:14)
[2021-10-21] MEDS: meclizine 25 mg tablet PO (23:14)
[2021-10-22] VITALS (34 sets, daily range): BP systolic 123–177; BP diastolic 75–120; PULSE 75–91; RESP 12–18; TEMP 36.5; O2SAT 91–99
[2021-10-22] MEDS: nicardipine 20 MG/200 ML PREMIX 50 MG IV ×6 (00:25→22:50)
--- NOTE | 2021-10-22 00:27 | PC.NURSE ---
Patient states that his dizziness is completely gone.
[2021-10-22 04:13] LABS: Basophils # 0.1 10^3/uL (0.0-0.1); Basophils % 0.8 %; Eosinophils # 0.1 10^3/uL (0.0-0.8); Eosinophils % 1.7 %; Hematocrit 36.2 % (42.0-52.0); Hemoglobin 10.9 g/dL (11.7-16.6); Lymphocytes # 1.8 10^3/uL (0.8-4.8); Lymphocytes % 27.6 %; Mean Corpuscular HGB Conc 30.1 g/dL (30.0-36.0); Mean Corpuscular Hemoglobin 23.5 pg (28.0-34.0); Mean Corpuscular Volume 78.2 fl (80-94); Mean Platelet Volume 11.3 fL (7.4-10.4); Monocytes # 0.5 10^3/uL (0.2-0.9); Monocytes % 7.7 %; Neutrophils # 3.94 10^3/uL (1.8-7.7); Neutrophils % 61.7 %; Nucleated Red Blood Cells % 0.3 %; Platelet Count 319 10^3/cmm (130-400); Red Blood Count 4.63 10^6/uL (4.1-5.3); White Blood Count 6.4 10^3/uL (4.0-10.0)
[2021-10-22 04:31] LABS: Alanine Aminotransferase 60 U/L (0-41); Albumin Level 3.5 g/dL (3.5-5.2); Alkaline Phosphatase 92 IU/L (40-130); Anion Gap 17.4 (5-19); Aspartate Amino Transferase 27 U/L (0-40); Blood Urea Nitrogen 18 mg/dL (6-20); Calcium 9.2 mg/dL (8.5-10.5); Carbon Dioxide 23 mmol/L (22-29); Chloride 100 mmol/L (98-107); Globulin 3.1 g/dL (1.3-4.6); Glomerular Filtration Rate 47.7 mL/min (90-130); Glucose 121 mg/dL (65-115); Magnesium 2.1 mg/dL (1.7-2.3); Osmolality Calculated 285 mOsm/kg (285-295); Phosphorus 3.3 mg/dL (2.5-4.5); Potassium 4.4 mmol/L (3.5-5.1); Sodium 136 mmol/L (136-145); Total Bilirubin 0.5 mg/dL (0.15-1.2); Total Protein 6.6 g/dL (6.6-8.7)
[2021-10-22 04:43] LABS: NT Pro B Type Natriuretic Pept 1743 pg/mL (0-125)
[2021-10-22] MEDS: hyDRALAzine 25 mg Tablet PO ×3 (05:29→22:49)
[2021-10-22] MEDS: aspirin 81 mg EC Tablet PO (07:53)
[2021-10-22] MEDS: amlodipine 10 mg Tablet PO (07:53)
[2021-10-22] MEDS: potassium chloride ER 20 mEq Tablet PO (07:53)
[2021-10-22] MEDS: metoprolol tartrate 25 mg Tablet PO ×2 (07:53→19:48)
[2021-10-22] MEDS: FUROsemide 40 mg Tablet PO (07:53)
--- NOTE | 2021-10-22 09:10 | PM.PN ---
Subjective Subjective: Interval history: Patient's blood pressure is still labile Head MRI results are pending, patient is still endorsing dizziness Vitals/I&O/Wt Last Vital Signs Temp 97.7 F 10/22/21 04:33 Pulse 91 10/22/21 08:22 Resp 12 10/22/21 08:22 BP 129/92 10/22/21 08:22 Pulse Ox 96 10/22/21 08:22 10/21/21 10/22/21 10/22/21 22:59 06:59 14:59 Intake Total 695.000 / 691.939 1232 / 1996.000 200 / 200 Output Total 400 / 1250 350 / 1600 Balance 295.000 / -319.000 715 / 396.000 200 / 200 Weight last 48 hrs Weight 131.542 kg Weight 131.542 kg Physical Exam Narrative: EXAM NARRATIVE: Patient was laying supine Blood pressure 129/92mmhg Nonfocal neuro exam Clinical signs of fluid overload S1, S2 Breathing well on room air Nonlabored breathing S1, S2 Data : 10/22/21 03:39 10/22/21 03:39 A&P Assessment and plan (1) Acute CHF: Status: Acute (2) KIMMY (acute kidney injury): Status: Acute (3) NSTEMI (non-ST elevated myocardial infarction): Status: Acute (4) Hypertensive emergency: Status: Acute (5) Dyspnea: Status: Acute (6) Cardiomegaly: Status: Acute (7) COVID-19: Status: Acute Plan Acute CHF, preserved ejection heart failure exacerbation Creatinine 2.0 Increase the dose of Lasix KIMMY related to cardiorenal and hypertensive emergency We will request urine studies today Hypertensive emergency, Cardene drip at 5, slowly titrate it off Check cortisol level, metanephrine Press syndrome to be ruled out, awaiting MRI results Prediabetic: We will need Metformin at the time of discharge Type II SD Dyspnea related to CHF exacerbation: Improving Full code Cardiac diet DVT prophylaxis Heparin Attestations Medical Necessity Statement*: Continue medical management Time Spent in Patient Care: 15min Coding Level of Care Code Acute 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
--- NOTE | 2021-10-22 09:17 | USCV_ITS ---
Mona Yuan Age: 31 Gender: M : 1990 Exam Date: 10/22/2021 10:46 Ordering Phys: Javi Ricci MD Technologist: Maulik Cesar [place] [facility] [place]ication: BLE SWELLING HISTORY: Lower extremity swelling. PROCEDURES: Venous duplex imaging was performed in bilateral lower extremities. The following venous structures were evaluated: common femoral vein, profunda vein, proximal portion of the greater saphenous vein, superficial femoral vein, and the popliteal vein. Serial compression, augmentation maneuvers, and spectral Doppler flow evaluation were performed. FINDINGS: Normal 2-D Doppler and augmentation and compressibility throughout the lower extremity venous structures. Additional imaging through the proximal calf veins also reveals no thrombus. Limited evaluation of the greater saphenous vein is patent with no thrombus. Bilateral subcutaneous lower extremity edema noted. CONCLUSIONS No DVT bilateral lower extremities. Dr. Randa Harding DO (Electronically Signed) Final Date: 22 October 2021 12:04 S
[2021-10-22 10:02] LABS: Cortisol Random 6.42 ug/dL (2.47-19.5)
--- NOTE | 2021-10-22 10:04 | PC.NURSE ---
Sheela resendez has been paused for patient to go to MRI. Physician approved. Patient has left floor for test.
--- NOTE | 2021-10-22 10:15 | MR_ITS ---
WS: [id number] MRI HEAD WITHOUT CONTRAST TECHNIQUE: Sagittal T1, T2 axial, T2 axial FLAIR, axial and coronal T1 images, axial susceptibility w eighted imaging, axial diffusion weighted images, and coronal T2 images were obtained. CLINICAL INFORMATION: PRESS COMPARISON: CT October 20, 2021 FINDINGS: Tiny 4 mm focus of restricted diffusion along the right anterior temporal lobe at the amygdala. Addit ional suspected focus of acute ischemia along the left subinsular cortex measuring 4 mm. No other foc i of acute ischemia. Ventricular system and basal cisterns are patent. Mild patchy supratentorial periventricular and subc ortical white matter changes nonspecific in a patient this age but can be seen with hypertension, maxine betes, collagen vascular disease and migraine headaches. Normal posterior fossa. Normal vascular flow voids at the skull base. No extra-axial fluid collections. No evidence of mass or mass effect. Paran esha sinuses are well aerated. Mastoid air cells are well aerated. No hemosiderin on the susceptibly weighted images. Normal optic chiasm and pituitary infundibulum. Te mporal lobes and hippocampal formations are normal in appearance. Normal cavernous sinuses and Meckel 's cave. Normal visualized posterior nasopharynx. Normal visualized parapharyngeal fat. MR/MR head wo con* [id number] IMPRESSION: 1. Tiny 4 mm focus of restricted diffusion along the right anterior temporal l obe at the amygdala suspicious for tiny focus of acute ischemia. Additional torrey pected focus of acute ischemia along the left subinsular cortex measuring 4 mm. 2. No other foci of restricted diffusion. 3. Mild patchy supratentorial white matter changes nonspecific in a patient th is age but can be seen with hypertension, diabetes, collagen vascular disease, and migraine headaches. 4. No significant parenchymal volume loss. 5. No MRI evidence of posterior reversible encephalopathy syndrome. 6. No hemosiderin on susceptibly weighted images. Notified Javi Ricci MD at 10/22/2021 4:12 PM.
[2021-10-22] MEDS: meclizine 25 mg tablet PO (10:34)
[2021-10-22] MEDS: heparin 5,000 unit/mL INJ 1 mL 5000 UNIT SUBCUT ×2 (10:34→22:49)
--- NOTE | 2021-10-22 10:41 | PC.NURSE ---
Patient is back on unit. MRI has been moved to [facility]. Communication has been made with MRI, Patient, and [facility]mill[facility]. MRI will arrange their own transport for patients. Patients cardene gtt has been resumed, pending MRI moss picker.
--- NOTE | 2021-10-22 15:04 | PC.NURSE ---
Patient left floor for MRI, Cardene gtt was paused. Blood pressure prior to leaving floor was 145/83
--- NOTE | 2021-10-22 15:34 | PC.NURSE ---
Patient back from MRI
--- NOTE | 2021-10-22 18:44 | PC.NURSE ---
Shift Note Frequent safety and comfort rounds continue. Orders and/or nursing care completed as indicated. Patient monitored for response to intervention and treatment(s). Education provided includes medications, treatment plan, and safety measures. Patient and/or veterans employment representative responsive to teaching. Will continue to monitor.
[2021-10-22] MEDS: atorvastatin 40 mg Tablet PO (19:48)
[2021-10-23] VITALS (56 sets, daily range): BP systolic 115–199; BP diastolic 74–127; PULSE 80–92; RESP 18–20; TEMP 36.1–36.9; O2SAT 90–99
[2021-10-23] MEDS: nicardipine 20 MG/200 ML PREMIX 50 MG IV (02:36)
[2021-10-23] MEDS: nicardipine 20 MG/200 ML PREMIX 100 MG IV ×7 (04:20→22:39)
[2021-10-23] MEDS: hyDRALAzine 25 mg Tablet PO ×2 (06:03→08:23)
[2021-10-23] MEDS: NIFEdipine ER (24 hr) 30 mg Tablet PO (06:03)
[2021-10-23 06:54] LABS: Anion Gap 14.1 (5-19); Blood Urea Nitrogen 18 mg/dL (6-20); Calcium 8.3 mg/dL (8.5-10.5); Carbon Dioxide 26 mmol/L (22-29); Chloride 100 mmol/L (98-107); Glomerular Filtration Rate 45.1 mL/min (90-130); Glucose 131 mg/dL (65-115); Osmolality Calculated 286 mOsm/kg (285-295); Potassium 4.1 mmol/L (3.5-5.1); Sodium 136 mmol/L (136-145)
[2021-10-23] MEDS: metoprolol tartrate 25 mg Tablet PO ×2 (08:22→20:31)
[2021-10-23] MEDS: bumetanide 1 mg Tablet PO (08:23)
[2021-10-23] MEDS: aspirin 81 mg EC Tablet PO (08:23)
[2021-10-23] MEDS: spironolactone 25 mg Tablet PO (08:23)
[2021-10-23] MEDS: famotidine 20 mg Tablet PO ×2 (08:23→17:14)
[2021-10-23] MEDS: potassium chloride ER 20 mEq Tablet PO (08:23)
[2021-10-23] MEDS: nicardipine 20 MG/200 ML PREMIX 75 MG IV (09:25)
[2021-10-23] MEDS: heparin 5,000 unit/mL INJ 1 mL 5000 UNIT SUBCUT ×2 (11:31→22:22)
--- NOTE | 2021-10-23 12:56 | P.PN_ITS ---
Subjective Subjective: Interval history: Patient blood pressure is better controlled today currently Cardene at 7.5, plan to wean off Cardene I have added spironolactone and start Bumex IV, pulmonary restriction, creatinine slightly worsened, dizziness has improved Lacunar infarct on MRI, results discussed with the patient, Vitals/I&O/Wt Last Vital Signs Temp 98.5 F 10/23/21 11:45 Pulse 84 10/23/21 11:45 Resp 18 10/23/21 11:45 BP 136/91 10/23/21 11:45 Pulse Ox 95 10/23/21 11:18 10/22/21 10/23/21 10/23/21 22:59 06:59 14:59 Intake Total 564.334 / 1369.167 849.166 / 2218.333 471.667 / 471.667 Output Total 550 / 1350 400 / 1750 790 / 790 Balance 14.334 / 19.167 449.166 / 468.333 -318.333 / -318.333 Weight last 48 hrs Weight 131.542 kg Physical Exam Narrative: EXAM NARRATIVE: Patient laying supine Comfortable Comfortable on room air Abdomen soft distended Bilateral extremity edema EOMI, PERRLA No audible stridor or wheezing Data : 10/22/21 03:39 10/23/21 06:12 A&P Assessment and plan (1) Acute CHF: Status: Acute (2) KIMMY (acute kidney injury): Status: Acute (3) NSTEMI (non-ST elevated myocardial infarction): Status: Acute (4) Hypertensive emergency: Status: Acute (5) Dyspnea: Status: Acute (6) Cardiomegaly: Status: Acute (7) COVID-19: Status: Acute Plan Acute CHF exacerbation, preserved ejection fraction, moderate pulmonary hypertension, is need sleep study at discharge, nocturnal pulse ox results requested Start IV Bumex Patient still in positive balance KIMMY related to CHF and hypertensive emergency, creatinine has plateaued at 2, patient is not oliguric, Not on any nephrotoxic agents, today have added spironolactone Hypertensive emergency: Lacunar infarct Kidney damage Patient will need ophthalmology appointment at the time of discharge Currently on diuretics, beta-timothy, nifedipine, hydralazine, spironolactone, Cardene drip being weaned off Lacunar infarct Consistent with hypertensive emergency No active focal deficit Dizziness has improved Permissive hypertension Cardiac diet 1200 mL fluid restriction Full code DVT prophylaxis Heparin Prediabetic will need Metformin at the time of discharge Attestations Medical Necessity Statement*: Discharge within next 12 to 30 hours Time Spent in Patient Care: 15 minutes Coding Level of Care Code 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
[2021-10-23] MEDS: bumetanide 0.25 mg/mL SDV 4 mL 1 MG IVP ×2 (14:33→22:22)
[2021-10-23] MEDS: hyDRALAzine 50 mg Tablet PO ×2 (14:33→22:22)
[2021-10-23] MEDS: nicardipine 20 MG/200 ML PREMIX 125 MG IV (17:14)
[2021-10-23] MEDS: atorvastatin 40 mg Tablet PO (20:31)
--- NOTE | 2021-10-23 21:58 | PC.NURSE ---
Called Dr. Ricci to verify Bumex orders. Ordered to give IV Bumex that is ordered for now and IV Bumex that is ordered for 0700. Ordered to stop PO Bumex.
[2021-10-24] VITALS (33 sets, daily range): BP systolic 116–204; BP diastolic 69–123; PULSE 79–92; RESP 16–24; TEMP 35.9–37; O2SAT 95–99
[2021-10-24] MEDS: esmolol drip 2,500 MG/250 ML PREMIX 39.46 MG IV (03:11)
[2021-10-24] MEDS: esmolol drip 2,500 MG/250 ML PREMIX 157.85 MG IV (04:21)
--- NOTE | 2021-10-24 04:26 | PC.NURSE ---
Dr. Crane notified that patient was at max dose on Cardene drip and still have elevated blood pressure. Patient was switched to Esmolol drip that was ordered and is currently on max dose. Blood pressure is currently 185/113. Ordered to start Clonidine BID 0.1 mg PO.
[2021-10-24] MEDS: cloNIDine 0.1 mg Tablet PO ×2 (05:18→17:05)
[2021-10-24] MEDS: hyDRALAzine 50 mg Tablet PO (05:18)
[2021-10-24 06:36] LABS: Anion Gap 12.1 (5-19); Blood Urea Nitrogen 18 mg/dL (6-20); Calcium 8.3 mg/dL (8.5-10.5); Carbon Dioxide 25 mmol/L (22-29); Chloride 103 mmol/L (98-107); Glomerular Filtration Rate 42.7 mL/min (90-130); Glucose 153 mg/dL (65-115); Osmolality Calculated 287 mOsm/kg (285-295); Potassium 4.1 mmol/L (3.5-5.1); Sodium 136 mmol/L (136-145)
[2021-10-24] MEDS: NIFEdipine ER (24 hr) 30 mg Tablet PO (08:00)
[2021-10-24] MEDS: potassium chloride ER 20 mEq Tablet PO (08:00)
[2021-10-24] MEDS: metoprolol tartrate 25 mg Tablet PO (08:00)
[2021-10-24] MEDS: bumetanide 0.25 mg/mL SDV 4 mL 1 MG IVP ×2 (08:00→17:01)
[2021-10-24] MEDS: spironolactone 25 mg Tablet PO (08:00)
[2021-10-24] MEDS: aspirin 81 mg EC Tablet PO (08:00)
[2021-10-24] MEDS: famotidine 20 mg Tablet PO ×2 (08:01→17:01)
[2021-10-24] MEDS: docusate sodium 100 mg Capsule PO ×2 (08:05→17:01)
--- NOTE | 2021-10-24 09:53 | PC.NURSE ---
patient states that his IV is leaking, nurse has been notified.
--- NOTE | 2021-10-24 10:23 | USR_ITS ---
PROCEDURE INFORMATION: Exam: US Retroperitoneal; Complete; Kidneys and Bladder Exam date and time: 10/24/2021 10:23 AM Age: 31 years old Clinical indication: Condition or disease; Other: Hypertension; Additional info: Renal art stenosis, non-diagnostic for renal arteries TECHNIQUE: Imaging protocol: Real-time ultrasound of the retroperitoneum with image documentation. Complete exam focused on the kidneys and bladder. COMPARISON: US renal BI* [id number] 10/20/2021 7:30 AM FINDINGS: Limitations: The study was technically limited by the patient's body habitus and interfering bowel gas. Right kidney: The length of the right kidney could apparently not be determined due to interference by bowel gas. The renal parenchymal echogenicity is within normal limits. No hydronephrosis. Left kidney: The left kidney measures approximately 10.9 cm in length. Normal parenchymal echogenicity. No hydronephrosis. Urinary bladder: The bladder is grossly unremarkable. US/US renal BI* [id number] IMPRESSION: Technically limited exam. No hydronephrosis.
--- NOTE | 2021-10-24 10:52 | P.PN_ITS ---
Subjective Subjective: Interval history: Patient was seen and examined this morning, his dizziness has improved, he is feeling slightly better, blood pressure this morning, 121/69, his pressure chet as soon as he woke up, currently on esmolol drip Clonidine added overnight We will add ANCA studies, urinalysis to see if he has any casts consistent with nephrotic syndrome Obesity sleep apnea related FSGS? Creatinine is worsening We will consult nephro tomorrow morning Continue Bumex IV regimen to keep him in negative balance Vitals/I&O/Wt Last Vital Signs Temp 97.8 F 10/24/21 07:06 Pulse 88 10/24/21 08:00 Resp 18 10/24/21 07:06 BP 160/104 10/24/21 08:00 Pulse Ox 97 10/24/21 08:00 10/23/21 10/24/21 10/24/21 22:59 06:59 14:59 Intake Total 741.667 / 1773.334 771.034 / 2544.368 720 / 720 Output Total 1245 / 2035 1250 / 3285 630 / 630 Balance -503.333 / -261.666 -478.966 / -740.632 90 / 90 Physical Exam Narrative: EXAM NARRATIVE: Patient was laying comfortably in his bed No active neurological deficit Neuro, PERRLA S1, S2 Lower extremity edema Abdominal bloating with obesity EOMI, PERRLA Appropriate mood and affect Data : 10/22/21 03:39 10/24/21 04:55 A&P Assessment and plan (1) Acute CHF: Status: Acute (2) KIMMY (acute kidney injury): Status: Acute (3) NSTEMI (non-ST elevated myocardial infarction): Status: Acute (4) Hypertensive emergency: Status: Acute (5) Dyspnea: Status: Acute (6) COVID-19: Status: Acute (7) Cardiomegaly: Status: Acute Plan Clonidine added overnight Currently on esmolol drip Spironolactone was also added yesterday Continue IV Bumex to keep him negative balance He might need renal biopsy We will consult nephro tomorrow morning Requesting LATOYA, ANCA studies, triglyceride, urine casts, UA Renal aldosterone pending, cortisol normal, T4 normal I will also get a renal duplex to rule out renal artery stenosis Cardiac consistent carb diet DVT prophylaxis on board Type II SC Nocturnal pulse oximetry study will need sleep study outpatient Check lipid panel Proteinuria noted Lacunar infarct related to hypertensive emergency Attestations Medical Necessity Statement*: Continue medical management Time Spent in Patient Care: 15mins Coding Level of Care Code 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
[2021-10-24 12:04] LABS: Chol HDL Ratio 2.61 mg/dL (1.0-5.00); Cholesterol 99 mg/dL (0-200); HDL Cholesterol 38 mg/dL (60-100); LDL Cholesterol Calculated 29 mg/dL (50-129); LDL HDL Ratio 0.76 RATIO (0.00-3.22); Triglycerides 162 mg/dL (0-150)
[2021-10-24] MEDS: heparin 5,000 unit/mL INJ 1 mL 5000 UNIT SUBCUT ×2 (12:06→23:02)
[2021-10-24] MEDS: hyDRALAzine 50 mg Tablet 75 MG PO ×2 (12:06→19:59)
[2021-10-24 12:13] LABS: Add Urine Microscopic? NO; Charge for UA Resulting for Rev
[2021-10-24 13:06] LABS: Bilirubin Urine Neg (Negative); Blood Urine Neg (Negative); Glucose Urine UA Norm (Normal); Ketones Urine Negative (Negative); Leukocyte Esterase Urine Negative (Negative); Nitrate Urine Negative (Negative); Protein Urine Neg (Negative); Specific Gravity, Urine 1.005 (1.005-1.030); Urine Appearance Clear (CLEAR); Urine Color Straw (Yellow); Urobilinogen Urine 1 mg/dL (Negative); pH Urine 7 (5-7)
[2021-10-24] MEDS: atorvastatin 40 mg Tablet PO (19:58)
[2021-10-24] MEDS: metoprolol tartrate 50 mg Tablet PO (19:58)
--- NOTE | 2021-10-24 20:02 | PC.NURSE ---
Shift Note Frequent safety and comfort rounds continue. Orders and/or nursing care completed as indicated. Patient monitored for response to intervention and treatment(s). Education provided includes up ad renee, BP control and continuous diurese. Patient and/or customer assistance representative verbaliZes understanding. Will continue to monitor.
[2021-10-24 23:42] LABS: Plasma Renin Activity LC/MS/MS 3.31 ng/mL/h (0.25-5.82)
[2021-10-25] VITALS (11 sets, daily range): BP systolic 113–160; BP diastolic 82–119; PULSE 73–85; RESP 12–26; TEMP 36.6–37.1; O2SAT 96–98
[2021-10-25 04:12] LABS: Anion Gap 14.6 (5-19); Blood Urea Nitrogen 21 mg/dL (6-20); Calcium 9.4 mg/dL (8.5-10.5); Carbon Dioxide 24 mmol/L (22-29); Chloride 103 mmol/L (98-107); Glomerular Filtration Rate 42.7 mL/min (90-130); Glucose 116 mg/dL (65-115); Osmolality Calculated 288 mOsm/kg (285-295); Potassium 4.6 mmol/L (3.5-5.1); Sodium 137 mmol/L (136-145); Triglycerides 80 mg/dL (0-150)
[2021-10-25] MEDS: hyDRALAzine 50 mg Tablet 75 MG PO ×3 (04:42→20:09)
[2021-10-25] MEDS: bumetanide 0.25 mg/mL SDV 4 mL 1 MG IVP (04:43)
[2021-10-25] MEDS: spironolactone 25 mg Tablet PO (08:38)
[2021-10-25] MEDS: cloNIDine 0.1 mg Tablet PO (08:38)
[2021-10-25] MEDS: NIFEdipine ER (24 hr) 30 mg Tablet 90 MG PO (08:38)
[2021-10-25] MEDS: potassium chloride ER 20 mEq Tablet PO (08:39)
[2021-10-25] MEDS: aspirin 81 mg EC Tablet PO (08:39)
[2021-10-25] MEDS: metoprolol tartrate 50 mg Tablet PO ×2 (08:39→20:10)
--- NOTE | 2021-10-25 09:52 | P.PN_ITS ---
Subjective Subjective: Interval history: Creatinine has not improved despite negative fluid balance on IV Bumex, I asked nurse to take manual blood pressure It is 160s/110 Renal duplex was nonconclusive regarding renal artery stenosis I have requested Dr. Perez to evaluate Mr. Yuan Discussed over the phone with him as well Vitals/I&O/Wt Last Vital Signs Temp 98.6 F 10/25/21 09:02 Pulse 85 10/25/21 09:02 Resp 12 10/25/21 09:02 BP 160/110 10/25/21 09:02 Pulse Ox 96 10/25/21 09:02 10/24/21 10/25/21 10/25/21 22:59 06:59 14:59 Intake Total 360 / 1930 100 / 2030 250 / 250 Output Total 1400 / 1400 Balance 360 / 1300 100 / 1400 -1150 / -1150 Physical Exam Narrative: EXAM NARRATIVE: Patient is laying comfortably in his bed Saturating well on room air Hypertensive Nonfocal neuro exam S1, S2 Edema of legs present Nonfocal neuro exam Nonlabored breathing Doing well on room air Appropriate mood and affect Data : 10/22/21 03:39 10/25/21 03:18 A&P Assessment and plan (1) Acute CHF: Status: Acute (2) KIMMY (acute kidney injury): Status: Acute (3) NSTEMI (non-ST elevated myocardial infarction): Status: Acute (4) Hypertensive emergency: Status: Acute (5) Dyspnea: Status: Acute (6) Cardiomegaly: Status: Acute (7) COVID-19: Status: Acute Plan acute CHF exacerbation, Preserved ejection fraction Continue IV Bumex KIMMY related to cardiorenal syndrome Requested nephrology to evaluate him today as well Renal artery stenosis has not been ruled out Proteinuria positive Resistant hypertension hypertensive emergency Currently on clonidine, metoprolol, hydralazine, nifedipine, spironolactone, Bumex, esmolol drip was turned off today Prediabetic will need Metformin at discharge Will need sleep study outpatient Need PCP appointment as well Attestations Medical Necessity Statement*: Continue medical management Time Spent in Patient Care: 15 Coding Level of Care Code Acute Global Upstream Marketing Manager for [facility] Fwd Diagnoses Acute CHF I50.9 KIMMY (acute kidney injury) N17.9 NSTEMI (non-ST elevated myocardial infarction) I21.4 Hypertensive emergency I16.1 Dyspnea R06.00 Cardiomegaly I51.7 COVID-19 U07.1
--- NOTE | 2021-10-25 09:56 | PM.CONSULT ---
Providers/Reason For Consult Consulting Physician/Specialty*: adrian anderson md / telenephrology Reason for Consult*: renal insufficiency and htn Requesting Physician: Dr. Ricci Attending Physician: aJvi Ricci MD History of Present Illness History of Present Illness Mona Yuan is a 31 year old male w/ long standing htn, recent COVID-19+. Pt was on 5 meds and weaned down to lisinopril. Pt was admitted on 10-19-21 w/ cp, sob, and edema. On admission he was having hypertensive urgency- 252/ 185. Pt was started on BP meds, cardene and esmolol drip and diuretics. He had a ECHO- EF 65%, Small left ventricular cavity size.? Markedly increased left?ventricular wall thickness.? Severe concentric left ventricular?hypertrophy and pulm art hypertension.. renal called for evaluation of htn and renal insufficiency. Review of Systems Narrative: feels better. no guerra, cp, sob, visual changes, n/v/f/c/, urinary complaints. + edema Medications/Allergies Home Medications Medication Instructions Recorded Confirmed Last Taken Type Bp Meds Filled 09/09/21 30d/S See Rx Instructions .ROUTE .COMPLEX 10/20/21 10/20/21 Unknown History lisinopril 10 mg tablet 10 mg PO DAILY 10/20/21 10/20/21 10/18/21 History Allergies Allergy/AdvReac Type Severity Reaction Status Date / Time kiwi Allergy ALGY-Anaphy Verified 10/20/21 08:31 laxis Current Medications Generic Name Dose Route Start Last Admin Trade Name Freq PRN Reason Stop Dose Admin Acetaminophen 650 mg 10/19/21 23:30 10/21/21 01:48 Acetaminophen 325 Mg Tablet PO 650 mg Q6H PRN Administration Mild/Mod Pain Or Temp >/= 101 Aspirin 81 mg 10/20/21 09:00 10/25/21 08:39 Aspirin 81 Mg Ec Tablet PO 81 mg DAILY [facility] Administration Atorvastatin Calcium 40 mg 10/20/21 21:00 10/24/21 19:58 Atorvastatin 40 Mg Tablet PO 40 mg BEDTIME [facility] Administration Bumetanide 1 mg 10/24/21 17:00 10/25/21 04:43 Bumetanide 0.25 Mg/Ml Sdv 4 Ml IVP 1 mg Q12H [facility]ANE Administration Clonidine HCl 0.1 mg 10/24/21 04:30 10/25/21 08:38 Clonidine 0.1 Mg Tablet PO 0.1 mg BID [facility] Administration Docusate Sodium 100 mg 10/20/21 09:00 10/25/21 08:39 Docusate Sodium 100 Mg Capsule PO Not Given BID [facility] Famotidine 20 mg 10/20/21 09:00 10/25/21 08:39 Famotidine 20 Mg Tablet PO Not Given BID [facility] Guaifenesin/Dextromethorphan 10 ml 10/21/21 18:10 10/21/21 18:50 Guaifenesin-Dextromethorphan Udc 10 Ml PO 10 ml Q4H PRN Administration COUGH Heparin Sodium (Porcine) 5,000 unit 10/19/21 23:30 10/24/21 23:02 Heparin 5,000 Unit/Ml Inj 1 Ml SUBCUT 5,000 unit Q12H [facility] Administration Hydralazine HCl 10 mg 10/20/21 15:51 10/21/21 09:30 Hydralazine 20 Mg/Ml Inj 1 Ml IVP 10 mg Q4H PRN Administration sbp>180 or dbp>100 Hydralazine HCl 75 mg 10/24/21 12:00 10/25/21 04:42 Hydralazine 50 Mg Tablet PO 75 mg Q8H [facility] Administration Nicardipine/Sodium Chloride 20 mg in 200 mls @ 0 mls/hr 10/21/21 18:15 10/24/21 03:10 Cardene IV Infused .Q0M ARIANE Titration Protocol Per Protocol Esmolol HCl 2,500 mg in 250 mls @ 0 mls/hr 10/23/21 15:45 10/24/21 14:52 Brevibloc Drip IV Infused .Q0M ARIANE Titration Protocol Per Protocol Meclizine HCl 25 mg 10/21/21 23:06 10/22/21 10:34 Meclizine 25 Mg Tablet PO 25 mg ONCE PRN Administration DIZZINESS Metoprolol Tartrate 50 mg 10/24/21 20:00 10/25/21 08:39 Metoprolol Tartrate 50 Mg Tablet PO 50 mg Q12H [facility] Administration Nifedipine 90 mg 10/25/21 09:00 10/25/21 08:38 Nifedipine Er (24 Hr) 30 Mg Tablet PO 90 mg DAILY [facility] Administration Ondansetron HCl 4 mg 10/19/21 23:30 10/21/21 23:14 Ondansetron 2 Mg/Ml Sdv 2 Ml IVP 4 mg Q8H PRN Administration vomiting, or N/V if npo Potassium Chloride 20 meq 10/20/21 12:25 10/25/21 08:39 Potassium Chloride Er 20 Meq Tablet PO 20 meq DAILY [facility] Administration Spironolactone 25 mg 10/23/21 08:00 10/25/21 08:38 Spironolactone 25 Mg Tablet PO 25 mg DAILY [facility] Administration PFSH Acute PFSH: Medical History COVID-19 Social History Smoking and tobacco status: never smoked Vitals/I&O/Wt Last Vital Signs Temp 98.6 F 10/25/21 09:02 Pulse 85 10/25/21 09:02 Resp 12 10/25/21 09:02 BP 160/110 10/25/21 09:02 Pulse Ox 96 10/25/21 09:02 10/24/21 10/25/21 10/25/21 22:59 06:59 14:59 Intake Total 360 / 1930 100 / 2030 250 / 250 Output Total 1400 / 1400 Balance 360 / 1300 100 / 1400 -1150 / -1150 Physical Exam Narrative: EXAM NARRATIVE: NARD in bed on esmolol and cardene drips heent- nc/at, eomi, anicteric neck no jvp lungs clear b/l heart - reg abd soft, nt, nd, + bs ext b/l Below knee edema neuro- a,a, o x 3 Data : 10/22/21 03:39 10/25/21 03:18 A&P Assessment and plan (1) KIMMY (acute kidney injury): 31 yr old man 1. refractory htn- check renal art duplex -renin : ro ratio 3.3/ 10 -await metanephrines -u/a no protein -albumin: cr ratio of 446- definitely subnephrotic range proteinuria -no blood- unlikely nephritic syndrome -likely long standing htn- could have been worsened by recent COVID-19+ -change meds to clonidine 0.2 tid- wean off drips -add losartan 50 mgm po d -d/c oral k 2. renal insufficiecny- try to get old blood work LVH on echo -likely from htn -outpt renal f/u- can consider renal bx as outpt -monitor in and out, weights, chemistries -check phos, pth, vit d -ldl low not c/w nephrotic syndrome 3. anemia eval- kappa/ lambda, sife, uife 4. Q DM- hgb a1c of 6.3- weight loss- if use a med- please use a SGLT2-i seen and examine dwq/ rn- telehealth visit time spent 50 min Status: Acute Plan 31 yr old man 1. refractory htn- check renal art duplex -renin : ro ratio 3.3/ 10 -await metanephrines -u/a no protein -albumin: cr ratio of 446- definitely subnephrotic range proteinuria -no blood- unlikely nephritic syndrome -likely long standing htn- could have been worsened by recent COVID-19+ -change meds to clonidine 0.2 tid- wean off drips -add losartan 50 mgm po d -d/c oral k 2. renal insufficiecny- try to get old blood work LVH on echo -likely from htn -outpt renal f/u- can consider renal bx as outpt -monitor in and out, weights, chemistries -check phos, pth, vit d -ldl low not c/w nephrotic syndrome 3. anemia eval- kappa/ lambda, sife, uife 4. Q DM- hgb a1c of 6.3- weight loss- if use a med- please use a SGLT2-i Consult Attestations Medical Necessity Statement: htn urgency -renal insufficiency Time Spent in Patient Care: Greater than 35 minutes (>than 50% of time spent in counselling and/or direct pt care on unit). 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
[2021-10-25] MEDS: losartan 50 mg Tablet PO (10:54)
[2021-10-25] MEDS: heparin 5,000 unit/mL INJ 1 mL 5000 UNIT SUBCUT ×2 (10:54→22:48)
[2021-10-25] MEDS: cloNIDine 0.1 mg Tablet 0.2 MG PO ×2 (15:49→20:10)
[2021-10-25] MEDS: acetaminophen 325 mg Tablet 650 MG PO (20:07)
[2021-10-25] MEDS: atorvastatin 40 mg Tablet PO (20:10)
[2021-10-26] VITALS (16 sets, daily range): BP systolic 95–176; BP diastolic 50–99; PULSE 70–86; RESP 22; TEMP 36.4–36.8; O2SAT 96
[2021-10-26 03:39] LABS: Basophils % 0.6 %; Eosinophils # 0.1 10^3/uL (0.0-0.8); Eosinophils % 1.7 %; Hematocrit 35.4 % (42.0-52.0); Hemoglobin 10.5 g/dL (11.7-16.6); Lymphocytes # 1.4 10^3/uL (0.8-4.8); Lymphocytes % 25.7 %; Mean Corpuscular HGB Conc 29.7 g/dL (30.0-36.0); Mean Corpuscular Hemoglobin 23.1 pg (28.0-34.0); Mean Corpuscular Volume 77.8 fl (80-94); Mean Platelet Volume 10.8 fL (7.4-10.4); Monocytes # 0.5 10^3/uL (0.2-0.9); Monocytes % 8.6 %; Neutrophils # 3.32 10^3/uL (1.8-7.7); Neutrophils % 63.2 %; Nucleated Red Blood Cells % 0 %; Platelet Count 337 10^3/cmm (130-400); Red Blood Count 4.55 10^6/uL (4.1-5.3); Red Cell Distribution Width 18.3 % (12.1-15.1); White Blood Count 5.3 10^3/uL (4.0-10.0)
[2021-10-26 04:11] LABS: Anion Gap 16.6 (5-19); Blood Urea Nitrogen 24 mg/dL (6-20); Calcium 9.8 mg/dL (8.5-10.5); Carbon Dioxide 21 mmol/L (22-29); Chloride 102 mmol/L (98-107); Glomerular Filtration Rate 40.6 mL/min (90-130); Glucose 135 mg/dL (65-115); Osmolality Calculated 286 mOsm/kg (285-295); Potassium 4.6 mmol/L (3.5-5.1); Sodium 135 mmol/L (136-145)
[2021-10-26] MEDS: hyDRALAzine 50 mg Tablet 75 MG PO (04:11)
--- NOTE | 2021-10-26 08:09 | PM.PN ---
Subjective Subjective: Interval history: feels better. dec edema. bp improving. no n/v/f/c/guerra/d. Medications: Reviewed: Yes Medication Review Details: Current Medications Acetaminophen (Acetaminophen 325 Mg Tablet) 650 mg PO Q6H PRN PRN Reason: Mild/Mod Pain Or Temp >/= 101 Last Admin: 10/25/21 20:07 Dose: 650 mg Documented by: Amlodipine Besylate (Amlodipine 10 Mg Tablet) 10 mg PO DAILY [facility] Aspirin (Aspirin 81 Mg Ec Tablet) 81 mg PO DAILY [facility] Last Admin: 10/25/21 08:39 Dose: 81 mg Documented by: Atorvastatin Calcium (Atorvastatin 40 Mg Tablet) 40 mg PO BEDTIME [facility] Last Admin: 10/25/21 20:10 Dose: 40 mg Documented by: Bumetanide (Bumetanide 0.25 Mg/Ml Sdv 4 Ml) 1 mg IVP DAILY [facility] Clonidine HCl (Clonidine 0.1 Mg Tablet) 0.1 mg PO TID [facility] Docusate Sodium (Docusate Sodium 100 Mg Capsule) 100 mg PO BID [facility] Last Admin: 10/25/21 17:28 Dose: Not Given Documented by: Famotidine (Famotidine 20 Mg Tablet) 20 mg PO BID [facility] Last Admin: 10/25/21 17:28 Dose: Not Given Documented by: Guaifenesin/Dextromethorphan (Guaifenesin-Dextromethorphan Udc 10 Ml) 10 ml PO Q4H PRN PRN Reason: COUGH Last Admin: 10/21/21 18:50 Dose: 10 ml Documented by: Heparin Sodium (Porcine) (Heparin 5,000 Unit/Ml Inj 1 Ml) 5,000 unit SUBCUT Q12H [facility] Last Admin: 10/25/21 22:48 Dose: 5,000 unit Documented by: Hydralazine HCl (Hydralazine 50 Mg Tablet) 50 mg PO Q8H [facility] Esmolol HCl (Brevibloc Drip) 2,500 mg in 250 mls @ 0 mls/hr IV .Q0M [facility]; Protocol Last Titration: 10/24/21 14:52 Dose: Infused Documented by: Losartan Potassium (Losartan 50 Mg Tablet) 50 mg PO DAILY [facility] Last Admin: 10/25/21 10:54 Dose: 50 mg Documented by: Meclizine HCl (Meclizine 25 Mg Tablet) 25 mg PO ONCE PRN PRN Reason: DIZZINESS Last Admin: 10/22/21 10:34 Dose: 25 mg Documented by: Metoprolol Tartrate (Metoprolol Tartrate 25 Mg Tablet) 25 mg PO Q12H [facility] Ondansetron HCl (Ondansetron 2 Mg/Ml Sdv 2 Ml) 4 mg IVP Q8H PRN PRN Reason: vomiting, or N/V if npo Last Admin: 10/21/21 23:14 Dose: 4 mg Documented by: Spironolactone (Spironolactone 25 Mg Tablet) 25 mg PO DAILY [facility] Last Admin: 10/25/21 08:38 Dose: 25 mg Documented by: Vitals/I&O/Wt Last Vital Signs Temp 98.3 F 10/26/21 03:26 Pulse 72 10/26/21 05:11 Resp 22 H 10/26/21 03:26 BP 100/64 10/26/21 03:26 Pulse Ox 96 10/26/21 03:26 10/25/21 10/26/21 10/26/21 22:59 06:59 14:59 Intake Total 586 / 1072 300 / 1372 Output Total 400 / 1800 800 / 2600 Balance 186 / -728 -500 / -1228 Physical Exam Narrative: EXAM NARRATIVE: NARD in bed off of esmolol and cardene drips heent- nc/at, eomi, anicteric neck no jvp lungs clear b/l heart - reg abd soft, nt, nd, + bs ext b/l Below knee edema improved neuro- a,a, o x 3 Data : 10/26/21 02:12 10/26/21 02:12 A&P Assessment and plan (1) KIMMY (acute kidney injury): 31 yr old man 1. refractory htn- check renal art duplex -renin : ro ratio 3.3/ 10 -await metanephrines -u/a no protein -albumin: cr ratio of 446- definitely subnephrotic range proteinuria -no blood- unlikely nephritic syndrome -likely long standing htn- could have been worsened by recent COVID-19+ -BP improved- on norvasc 10 mg po d, change bumex to po, hydralazine 50 q 8, losartan 50 d, metoprolol 25 q 12, aldactone 25 po d -likely need to lower meds- as bp may drop too much- risk of CVA and /pr stroke 2. renal insufficiecny- try to get old blood work LVH on echo -likely from htn -outpt renal f/u- can consider renal bx as outpt -monitor in and out, weights, chemistries -check phos, pth, vit d -ldl low not c/w nephrotic syndrome 3. anemia eval- kappa/ lambda, sife, uife 4. Q DM- hgb a1c of 6.3- weight loss- if use a med- please use a SGLT2-i NEEDS OUTPT RENAL F/U seen and examined w/ rn- telehealth visit time spent 30 min Status: Acute Plan as above Attestations Medical Necessity Statement*: per medicine Time Spent in Patient Care: 16 - 35 minutes (>than 50% of time spent in counselling and/or direct pt care on unit). Coding Level of Care Code Acute Finger Buff Sewer for [facility] Diagnoses KIMMY (acute kidney injury) N17.9
[2021-10-26] MEDS: famotidine 20 mg Tablet PO ×2 (08:12→18:24)
[2021-10-26] MEDS: metoprolol tartrate 25 mg Tablet PO ×2 (08:12→22:02)
[2021-10-26] MEDS: hyDRALAzine 50 mg Tablet PO (08:12)
[2021-10-26] MEDS: docusate sodium 100 mg Capsule PO (08:13)
[2021-10-26] MEDS: losartan 50 mg Tablet PO (08:13)
[2021-10-26] MEDS: aspirin 81 mg EC Tablet PO (08:13)
[2021-10-26] MEDS: spironolactone 25 mg Tablet PO (08:13)
[2021-10-26 08:56] LABS: Thyroid Stimulating Hormone 12.81 uIU/mL (0.27-4.20)
[2021-10-26] MEDS: cloNIDine 0.1 mg Tablet PO ×3 (10:01→22:02)
[2021-10-26] MEDS: bumetanide 1 mg Tablet PO (10:01)
[2021-10-26] MEDS: amlodipine 10 mg Tablet PO (10:01)
--- NOTE | 2021-10-26 10:44 | P.PN_ITS ---
Subjective Subjective: Interval history: Negative fluid balance creatinine 2.[address] Perez for recommending discharging him and following up with outpatient manager asset management, this morning I have reduce his antihypertensive regimen dosages, plan to discharge him tomorrow Patient not endorsing any overnight events Has slight headache on right side Vitals/I&O/Wt Last Vital Signs Temp 97.6 F 10/26/21 08:27 Pulse 79 10/26/21 10:06 Resp 22 H 10/26/21 03:26 BP 151/96 10/26/21 10:06 Pulse Ox 96 10/26/21 03:26 10/25/21 10/26/21 10/26/21 22:59 06:59 14:59 Intake Total 586 / 1072 300 / 1372 600 / 600 Output Total 400 / 1800 800 / 2600 900 / 900 Balance 186 / -728 -500 / -1228 -300 / -300 Physical Exam Narrative: EXAM NARRATIVE: Laying comfortably in his bed Nonfocal neuro exam Saturating well on room air Bilateral extremity edema No signs of cushingoid Abdomen distended fluid overloaded Breathing well no acute respite distress S1, S2 Data : 10/26/21 02:12 10/26/21 02:12 A&P Assessment and plan (1) Acute CHF: Status: Acute (2) KIMMY (acute kidney injury): Status: Acute (3) NSTEMI (non-ST elevated myocardial infarction): Status: Acute (4) Hypertensive emergency: Status: Acute (5) Dyspnea: Status: Acute (6) Cardiomegaly: Status: Acute (7) COVID-19: Status: Acute Attestations Medical Necessity Statement*: Acute CHF exacerbation, preserved ejection fraction, currently on Bumex 1 mg Hypertensive emergency: I have reduce the dosages of antihypertensive regimen because of his low blood pressure I am planning to discharge him tomorrow with outpatient nephrology follow-up He will need Metformin at the time diabetes, sleep study as well New PCP appointment and cardiology/nephro follow-up Acute kidney failure related to hypertensive emergency and CHF exacerbation, work-up is pending, does not meet criteria for nephrotic range of proteinuria, renal aldosterone ratio is not high Time Spent in Patient Care: Discharge tomorrow Critical Care Time: 20mins Coding Level of Care Code Acute Internet Ecommerce Specialist for [facility] Fwd Diagnoses Acute CHF I50.9 KIMMY (acute kidney injury) N17.9 NSTEMI (non-ST elevated myocardial infarction) I21.4 Hypertensive emergency I16.1 Dyspnea R06.00 Cardiomegaly I51.7 COVID-19 U07.1
[2021-10-26] MEDS: heparin 5,000 unit/mL INJ 1 mL 5000 UNIT SUBCUT (11:35)
[2021-10-26 13:23] LABS: KAPPA LIGHT CHAIN, FREE, SERUM 101.3 mg/L (3.3-19.4); KAPPA/LAMBDA LIGHT CHAINS FREE 1.87 (0.26-1.65); LAMBDA LIGHT CHAIN, FREE, SERU 54.1 mg/L (5.7-26.3)
[2021-10-26 14:07] LABS: Anti-Double Strand DNA AB <1 IU/mL; Jo-1 Antibody <1.0 NEG AI (<1.0 NEG); SM/RNP Antibodies <1.0 NEG AI (<1.0 NEG); SS-B/LA IGG <1.0 NEG AI (<1.0 NEG); Scleroderma Ab(Scl-70) Ab <1.0 NEG AI (<1.0 NEG); Ss-A/Ro Igg <1.0 NEG AI (<1.0 NEG)
[2021-10-26 15:13] LABS: ALBUMIN 3.5 g/dL (3.8-4.8); ALPHA 1 GLOBULIN 0.4 g/dL (0.2-0.3); ALPHA 2 GLOBULIN 0.7 g/dL (0.5-0.9); BETA 1 GLOBULIN 0.5 g/dL (0.4-0.6); BETA 2 GLOBULIN 0.4 g/dL (0.2-0.5); GAMMA GLOBULIN 1.5 g/dL (0.8-1.7)
[2021-10-26] MEDS: hyDRALAzine 50 mg Tablet 25 MG PO (18:24)
--- NOTE | 2021-10-26 19:42 | PC.NURSE ---
Received report from LUZ ELENA Maddox. Patient resting in bed. Denies pain or discomfort. Reports feeling tired only. Assessment completed as documented. Discussed plan for the night. Patient verbalized complete understanding. No distress observed. Will continue to monitor.
[2021-10-26] MEDS: atorvastatin 40 mg Tablet PO (22:02)
[2021-10-27] VITALS (10 sets, daily range): BP systolic 165–185; BP diastolic 98–123; PULSE 74–89; RESP 18–24; TEMP 36.6–36.8; O2SAT 94–99
[2021-10-27] MEDS: hyDRALAzine 50 mg Tablet 25 MG PO (00:28)
[2021-10-27] MEDS: heparin 5,000 unit/mL INJ 1 mL 5000 UNIT SUBCUT (00:29)
[2021-10-27 04:27] LABS: Anion Gap 13.6 (5-19); Blood Urea Nitrogen 25 mg/dL (6-20); Calcium 8.9 mg/dL (8.5-10.5); Carbon Dioxide 25 mmol/L (22-29); Chloride 101 mmol/L (98-107); Glomerular Filtration Rate 42.7 mL/min (90-130); Glucose 105 mg/dL (65-115); Osmolality Calculated 285 mOsm/kg (285-295); Potassium 4.6 mmol/L (3.5-5.1); Sodium 135 mmol/L (136-145)
--- NOTE | 2021-10-27 08:25 | PM.PN ---
Subjective Subjective: Interval history: feels well. denies complaints of guerra/n/v/f/c/d/leg pains Medications: Reviewed: Yes Medication Review Details: Current Medications Acetaminophen (Acetaminophen 325 Mg Tablet) 650 mg PO Q6H PRN PRN Reason: Mild/Mod Pain Or Temp >/= 101 Last Admin: 10/25/21 20:07 Dose: 650 mg Documented by: Amlodipine Besylate (Amlodipine 10 Mg Tablet) 10 mg PO DAILY [facility] Last Admin: 10/26/21 10:01 Dose: 10 mg Documented by: Aspirin (Aspirin 81 Mg Ec Tablet) 81 mg PO DAILY [facility] Last Admin: 10/26/21 08:13 Dose: 81 mg Documented by: Atorvastatin Calcium (Atorvastatin 40 Mg Tablet) 40 mg PO BEDTIME [facility] Last Admin: 10/26/21 22:02 Dose: 40 mg Documented by: Bumetanide (Bumetanide 1 Mg Tablet) 1 mg PO DAILY [facility] Last Admin: 10/26/21 10:01 Dose: 1 mg Documented by: Clonidine HCl (Clonidine 0.1 Mg Tablet) 0.1 mg PO TID [facility] Last Admin: 10/26/21 22:02 Dose: 0.1 mg Documented by: Docusate Sodium (Docusate Sodium 100 Mg Capsule) 100 mg PO BID [facility] Last Admin: 10/26/21 18:27 Dose: Not Given Documented by: Famotidine (Famotidine 20 Mg Tablet) 20 mg PO BID [facility] Last Admin: 10/26/21 18:24 Dose: 20 mg Documented by: Guaifenesin/Dextromethorphan (Guaifenesin-Dextromethorphan Udc 10 Ml) 10 ml PO Q4H PRN PRN Reason: COUGH Last Admin: 10/21/21 18:50 Dose: 10 ml Documented by: Heparin Sodium (Porcine) (Heparin 5,000 Unit/Ml Inj 1 Ml) 5,000 unit SUBCUT Q12H [facility] Last Admin: 10/27/21 00:29 Dose: 5,000 unit Documented by: Hydralazine HCl (Hydralazine 50 Mg Tablet) 25 mg PO Q8H [facility] Last Admin: 10/27/21 00:28 Dose: 25 mg Documented by: Losartan Potassium (Losartan 50 Mg Tablet) 50 mg PO DAILY [facility] Last Admin: 10/26/21 08:13 Dose: 50 mg Documented by: Meclizine HCl (Meclizine 25 Mg Tablet) 25 mg PO ONCE PRN PRN Reason: DIZZINESS Last Admin: 10/22/21 10:34 Dose: 25 mg Documented by: Metoprolol Tartrate (Metoprolol Tartrate 25 Mg Tablet) 25 mg PO Q12H [facility] Last Admin: 10/26/21 22:02 Dose: 25 mg Documented by: Ondansetron HCl (Ondansetron 2 Mg/Ml Sdv 2 Ml) 4 mg IVP Q8H PRN PRN Reason: vomiting, or N/V if npo Last Admin: 10/21/21 23:14 Dose: 4 mg Documented by: Spironolactone (Spironolactone 25 Mg Tablet) 25 mg PO DAILY [facility] Last Admin: 10/26/21 08:13 Dose: 25 mg Documented by: Vitals/I&O/Wt Last Vital Signs Temp 98 F 10/27/21 03:29 Pulse 86 10/27/21 05:32 Resp 22 H 10/27/21 03:29 BP 178/110 10/27/21 03:29 Pulse Ox 99 10/27/21 03:29 10/26/21 10/27/21 10/27/21 22:59 06:59 14:59 Intake Total 720 / 1320 450 / 1770 Output Total 1940 / 3240 1750 / 4990 Balance -1220 / -1920 -1300 / -3220 Physical Exam Narrative: EXAM NARRATIVE: NARD in bed off of esmolol and cardene drips heent- nc/at, eomi, anicteric neck no jvp lungs clear b/l heart - reg abd soft, nt, nd, + bs ext b/l Below knee edema 2+ neuro- a,a, o x 3 Data : 10/26/21 02:12 10/27/21 02:36 A&P Assessment and plan (1) KIMMY (acute kidney injury): 31 yr old man 1. refractory htn- check renal art duplex -renin : ro ratio 3.3/ 10 -await metanephrines -u/a no protein -albumin: cr ratio of 446- definitely subnephrotic range proteinuria -no blood- unlikely nephritic syndrome -likely long standing htn- could have been worsened by recent COVID-19+ -BP improved, now up as we decreased meds- recommend the following: norvasc 10 mg po d, bumex 1 mg po bid, hydralazine 50 q 8, losartan 50 d, metoprolol 25 q 12, aldactone 25 po d -IF PT IS TO BE D/C- HE NEEDS CHEM 7 AND BP CHECKED 2 X/ WEEK AND CLOSE F/U W/ PMD OR RENAL 2. renal insufficiecny- try to get old blood work LVH on echo -likely from htn -outpt renal f/u- can consider renal bx as outpt -monitor in and out, weights, chemistries -normsl phos - await pth, vit d -ldl low not c/w nephrotic syndrome 3. anemia eval- kappa/ lambda, sife, uife SPEP normal 4. Q DM- hgb a1c of 6.3- weight loss- if use a med- please use a SGLT2-i 5. tsh 12.8 -levothyroxine per medicine NEEDS OUTPT RENAL F/U seen and examined w/ rn- telehealth visit time spent 30 min Status: Acute Plan as above Attestations Medical Necessity Statement*: per medicine Coding Level of Care Code Acute Legal Referee for [facility] Fwd Diagnoses KIMMY (acute kidney injury) N17.9
[2021-10-27] MEDS: cloNIDine 0.1 mg Tablet PO (09:04)
[2021-10-27] MEDS: amlodipine 10 mg Tablet PO (09:04)
[2021-10-27] MEDS: hyDRALAzine 50 mg Tablet PO (09:04)
[2021-10-27] MEDS: docusate sodium 100 mg Capsule PO (09:04)
[2021-10-27] MEDS: bumetanide 1 mg Tablet PO (09:05)
[2021-10-27] MEDS: losartan 50 mg Tablet PO (09:05)
[2021-10-27] MEDS: spironolactone 25 mg Tablet PO (09:05)
[2021-10-27] MEDS: metoprolol tartrate 25 mg Tablet PO (09:06)
[2021-10-27] MEDS: aspirin 81 mg EC Tablet PO (09:07)
[2021-10-27] MEDS: famotidine 20 mg Tablet PO (09:07)
--- NOTE | 2021-10-27 09:28 | P.DS_ITS ---
Discharge Providers Date of Admission: 10/19/21 23:30 Date of Discharge: October 27, 2021 Attending Provider at Admission: Robby Crane MD Attending Provider at Discharge: Javi Ricci MD Diagnoses at Discharge Discharge Diagnosis (1) KIMMY (acute kidney injury): Status: Acute Reason for Visit Reason for Visit: sob, congestion,dizzy,cough had covid 3 wks ago Hospital Course Hospital Course This note was done by Dr. Dahlia Chan Kwabena is a 31 year old male with a past medical history of hypertension, recent history of COVID-19 infection, who presents to [facility] due to increasing shortness of breath, chest pain, lightheadedness.? Patient tells me that he tested positive for Covid over 2 weeks ago, since He has been experiencing increasing shortness of breath, increasing shortness of breath with exertion, and substernal chest pain.? He also been experiencing increased lower extremity edema.? Denies any cardiovascular history, no history of CVA, chest pain is typically substernal, nonradiating, lasting a few minutes, associate with shortness of breath and lightheadedness.? No diaphoresis.? Denies any slurred speech, no paresthesias, no focal weakness.? Denies smoking.? No history of drug use.? No history of alcohol use.? Patient presented to [facility] was found to have hypertensive emergency with baseline troponin of 66, evidence of LVH, nonspecific ST-T wave changes, no acute ST elevation, BNP 5733, CTA no pulmonary embolism, cardiomegaly, blood pressure on admission 252/185, was given nitroglycerin, labetalol, Lasix, currently blood pressure 164/120 Hospital course Patient spent 8 days in the hospital, he was admitted for hypertensive emergency, he was diagnosed with acute onset congestive heart failure, echo revealed preserved ejection fraction, moderate pulmonary hypertension, overnight pulse oximetry studies were done, he was recommended for outpatient sleep study. It took almost 6 days to lower his blood pressure below 140/90 mmHg. Initially he was kept on Cardene drip which was switched to esmolol later. Renal aldosterone ratio not high, proteinuria not nephrotic range, VMA, metanephrine pending, cortisol level normal, no renal artery stenosis, renal ultrasound consistent with KIMMY, patient was experiencing dizziness every time his blood pressure was below 160 mmHg, head MRI was obtained which showed acute lacunar infarcts, there were no signs of press syndrome. His troponin leak was most likely type II AK, for his COVID-19 he was not requiring oxygen, he did well on room air, creatinine at the time of admission 1.7, creatinine at discharge 2.2, nephrology recommended biweekly BMP, he is being discharged on aggressive antihypertensive regimen for his resistant hypertension. Space Sciences Director has ordered serum protein electrophoresis, drug screen unremarkable. MRI Head:- ?Tiny 4 mm focus of restricted diffusion along the right anterior temporal lobe at the amygdala suspicious for tiny focus of acute ischemia. Additional suspected focus of acute ischemia along the left subinsular cortex measuring 4 mm. 2.? No other foci of restricted diffusion. 3.? Mild patchy supratentorial white matter changes nonspecific in a patient this age but can be seen with hypertension, diabetes, collagen vascular disease, and migraine headaches. 4.? No significant parenchymal volume loss. 5.? No MRI evidence of posterior reversible encephalopathy syndrome. 6.? No hemosiderin on susceptibly weighted images. Physical Exam Narrative: EXAM NARRATIVE: Laying comfortably in his bed Nonfocal neuro exam Saturating well on room air Bilateral extremity edema No signs of cushingoid Abdomen distended fluid overloaded Breathing well no acute respite distress S1, S2 ? Discharge Data Studies Completed and Pending Completed Studies During Hospitalization Category Date Time Status CT head wo con* [id number] Urgent Cat Scan 10/19/21 23:30 Completed CTA chest [CT angio chest PE protcl [id number]] Urgent Cat Scan 10/19/21 19:19 Completed XR chest 1V portable [id number] Urgent Exams 10/19/21 18:03 Completed MR head wo con* [id number] Routine MRI 10/22/21 10:15 [place] [id number] Routine Ultrasound 10/22/21 09:17 Completed CV. echo wo/w contrast [id number] Routine Ultrasound 10/20/21 23:30 Completed US renal BI* [id number] Routine Ultrasound 10/20/21 23:30 Completed US renal BI* [id number] Routine Ultrasound 10/24/21 10:23 Completed Pending at discharge Category Date Time Status LATOYA Profile Custom [[facility] LATOYA Profile] Routine Lab 10/24/21 11:14 Results ANCA [Anti-Neutrophil Cytoplasmic AB] Routine Lab 10/24/21 11:14 Results [place] Free Light Chains Urine Stat Lab 10/25/21 10:20 Uncollected Metanephrines, Frac LC/MS/MS Routine Lab 10/22/21 03:39 Received Urine Protein Electrop Random Routine Lab 10/25/21 19:30 Received Radiology Impressions Chest X-Ray 10/19/21 18:03 IMPRESSION: Cardiomegaly and mild interstitial edema. Chest CTA 10/19/21 19:19 IMPRESSION: 1. Negative for pulmonary embolus or airspace infiltrate. 2. Cardiomegaly. 3. Scattered prominent nonspecific mediastinal lymph nodes measuring 2.1 cm, nonspecific. Head CT 10/19/21 23:30 IMPRESSION: No acute findings. Head MRI 10/22/21 10:15 IMPRESSION: 1. Tiny 4 mm focus of restricted diffusion along the right anterior temporal lobe at the amygdala suspicious for tiny focus of acute ischemia. Additional suspected focus of acute ischemia along the left subinsular cortex measuring 4 mm. 2. No other foci of restricted diffusion. 3. Mild patchy supratentorial white matter changes nonspecific in a patient this age but can be seen with hypertension, diabetes, collagen vascular disease, and migraine headaches. 4. No significant parenchymal volume loss. 5. No MRI evidence of posterior reversible encephalopathy syndrome. 6. No hemosiderin on susceptibly weighted images. Notified Javi Ricci MD at 10/22/2021 4:12 PM. Renal Ultrasound 10/24/21 10:23 IMPRESSION: Technically limited exam. No hydronephrosis. Laboratory Results WBC 5.3 10^3/uL (4.0-10.0) 10/26/21 02:12 RBC 4.55 10^6/uL (4.1-5.3) 10/26/21 02:12 Hgb 10.5 g/dL (11.7-16.6) L 10/26/21 02:12 Hct 35.4 % (42.0-52.0) L 10/26/21 02:12 MCV 77.8 fl (80-94) L 10/26/21 02:12 MCH 23.1 pg (28.0-34.0) L 10/26/21 02:12 MCHC 29.7 g/dL (30.0-36.0) L 10/26/21 02:12 RDW 18.3 % (12.1-15.1) H 10/26/21 02:12 Plt Count 337 10^3/cmm (130-400) 10/26/21 02:12 MPV 10.8 fL (7.4-10.4) H 10/26/21 02:12 Neut % (Auto) 63.2 % 10/26/21 02:12 Lymph % (Auto) 25.7 % 10/26/21 02:12 [place] % (Auto) 8.6 % 10/26/21 02:12 Eos % (Auto) 1.7 % 10/26/21 02:12 Baso % (Auto) 0.6 % 10/26/21 02:12 Neut # (Auto) 3.32 10^3/uL (1.8-7.7) 10/26/21 02:12 Lymph # (Auto) 1.4 10^3/uL (0.8-4.8) 10/26/21 02:12 [place] # (Auto) 0.5 10^3/uL (0.2-0.9) 10/26/21 02:12 Eos # (Auto) 0.1 10^3/uL (0.0-0.8) 10/26/21 02:12 Baso # (Auto) 0.0 10^3/uL (0.0-0.1) 10/26/21 02:12 Nucleated RBC % (auto) 0 % 10/26/21 02:12 Nucleated RBCs # 0.0 /100WBC 10/26/21 02:12 PT 14.10 SECONDS (12.1-14.9) 10/19/21 18:45 INR 1.06 (0.8-1.2) 10/19/21 18:45 D-Dimer 1.89 ug/mIFEU (0-0.59) H 10/19/21 18:45 Sodium 135 mmol/L (136-145) L 10/27/21 02:36 Potassium 4.6 mmol/L (3.5-5.1) 10/27/21 02:36 Chloride 101 mmol/L (98-107) 10/27/21 02:36 Carbon Dioxide 25 mmol/L (22-29) 10/27/21 02:36 Anion Gap 13.6 (5-19) 10/27/21 02:36 BUN 25 mg/dL (6-20) H 10/27/21 02:36 Creatinine 2.2 mg/dL (0.7-1.2) H 10/27/21 02:36 GFR Calculation 42.7 mL/min (90-130) L 10/27/21 02:36 Glucose 105 mg/dL (65-115) 10/27/21 02:36 Estimat Average Glucose 134 10/19/21 18:45 Hemoglobin A1c 6.3 % (4.0-6.0) H 10/19/21 18:45 Calculated Osmolality 285 mOsm/kg (285-295) 10/27/21 02:36 Calcium 8.9 mg/dL (8.5-10.5) 10/27/21 02:36 Phosphorus 3.3 mg/dL (2.5-4.5) 10/22/21 03:39 Magnesium 2.1 mg/dL (1.7-2.3) 10/22/21 03:39 Total Bilirubin 0.5 mg/dL (0.15-1.2) 10/22/21 03:39 AST 27 U/L (0-40) 10/22/21 03:39 ALT 60 U/L (0-41) H 10/22/21 03:39 Alkaline Phosphatase 92 IU/L (40-130) 10/22/21 03:39 Creatine Kinase 98 U/L (39-308) 10/20/21 00:56 Troponin T Baseline 64 ng/L (0-15) H 10/19/21 18:45 Troponin T 120 Minute 55.53 ng/L (0-15) H 10/19/21 20:47 Delta Troponin T -8.47 ABS# (0-10) L 10/19/21 20:47 Troponin T Hi Sens 6Hr 68.83 ng/L (0-15) H 10/20/21 00:56 Troponin T Hi Sens 6Hr Delta 4.83 ng/L (0-12) 10/20/21 00:56 NT-Pro-B Natriuret Pep 1743 pg/mL (0-125) H 10/22/21 03:39 Total Protein 7.0 g/dL (6.1-8.1) 10/25/21 10:46 Albumin 3.5 g/dL (3.8-4.8) L 10/25/21 10:46 Globulin 3.1 g/dL (1.3-4.6) 10/22/21 03:39 Hscxs-3-Msfpzunwc 0.4 g/dL (0.2-0.3) H 10/25/21 10:46 Xjbdv-7-Ffzwdmvho 0.7 g/dL (0.5-0.9) 10/25/21 10:46 Xxbw-2-Lwguterk 0.5 g/dL (0.4-0.6) 10/25/21 10:46 Nyza-8-Sitxdhsd 0.4 g/dL (0.2-0.5) 10/25/21 10:46 Gamma Globulins 1.5 g/dL (0.8-1.7) 10/25/21 10:46 Abnorm Protein Band 1 Not Reportable 10/25/21 10:46 Triglycerides 80 mg/dL (0-150) 10/25/21 03:18 Cholesterol 99 mg/dL (0-200) 10/24/21 11:14 LDL Cholesterol, Calc 29 mg/dL (50-129) L 10/24/21 11:14 HDL Cholesterol 38 mg/dL (60-100) L 10/24/21 11:14 LDL/HDL Ratio 0.76 RATIO (0.00-3.22) 10/24/21 11:14 Cholesterol/HDL Ratio 2.61 mg/dL (1.0-5.00) 10/24/21 11:14 Renin Activity 3.31 ng/mL/h (0.25-5.82) 10/20/21 00:56 Aldosterone 10 ng/dL 10/20/21 00:56 TSH 12.81 uIU/mL (0.27-4.20) H 10/26/21 02:12 Free T4 1.50 ng/dL (0.82-1.77) 10/20/21 00:56 Random Cortisol 6.42 ug/dL (2.47-19.5) 10/22/21 03:39 Urine Color Straw (Yellow) 10/24/21 11:45 Urine Appearance Clear (CLEAR) 10/24/21 11:45 Urine pH 7 (5-7) 10/24/21 11:45 Ur Specific [place] 1.005 (1.005-1.030) 10/24/21 11:45 Urine Protein Neg (Negative) 10/24/21 11:45 Urine Glucose (UA) Norm (Normal) 10/24/21 11:45 Urine Ketones Negative (Negative) 10/24/21 11:45 Urine Blood Neg (Negative) 10/24/21 11:45 Urine Nitrate Negative (Negative) 10/24/21 11:45 Urine Bilirubin Neg (Negative) 10/24/21 11:45 Urine Urobilinogen 1 mg/dL (Negative) H 10/24/21 11:45 Ur Leukocyte Esterase Negative (Negative) 10/24/21 11:45 Ur Random Microalbumin 75 ug/dL (0-20) H 10/20/21 06:35 Urine Creatinine 168 mg/dL (39-259) 10/20/21 06:35 Microalb/Creat Ratio 446 mg/dL (0-20) H 10/20/21 06:35 U Abnormal Prot Band 2 Not Reportable 10/25/21 10:46 U Abnormal Prot Band 3 Not Reportable 10/25/21 10:46 Urine Opiates Screen Negative ng/mL (Negative) 10/20/21 08:32 Ur Barbiturates Screen Negative ng/mL (Negative) 10/20/21 08:32 Ur Phencyclidine Scrn Negative ng/mL (Negative) 10/20/21 08:32 Ur Amphetamines Screen Negative ng/mL (Negative) 10/20/21 08:32 U Benzodiazepines Scrn Negative ng/mL (Negative) 10/20/21 08:32 Urine Cocaine Screen Negative ng/mL (Negative) 10/20/21 08:32 U Marijuana (THC) Screen Negative ng/mL (Negative) 10/20/21 08:32 Pro Electrophoresis Int See note 10/25/21 10:46 Serum Immunofixation See note 10/25/21 10:46 SEYMOUR-1 Antibody <1.0 neg AI (<1.0 NEG) 10/24/21 11:14 SS-A/Ro IgG Antibody <1.0 neg AI (<1.0 NEG) 10/24/21 11:14 SS-B/La IgG Antibody <1.0 neg AI (<1.0 NEG) 10/24/21 11:14 Anti-nRNP/Sm IgG Ab <1.0 neg AI (<1.0 NEG) 10/24/21 11:14 Scl-70 Scleroderma Ab <1.0 neg AI (<1.0 NEG) 10/24/21 11:14 Anti-ds DNA IgG Ab <1 IU/mL 10/24/21 11:14 Free [place] Light Chains 101.3 mg/L (3.3-19.4) H 10/25/21 10:46 Free [place] Chain 54.1 mg/L (5.7-26.3) H 10/25/21 10:46 Free [place]/Lambda Ratio 1.87 (0.26-1.65) H 10/25/21 10:46 Vitals Last Vital Signs Temp 98 F 10/27/21 03:29 Pulse 86 10/27/21 05:32 Resp 22 H 10/27/21 03:29 BP 176/100 10/27/21 09:05 Pulse Ox 99 10/27/21 03:29 Discharge Plan Discharge Patient Disposition: Home Condition: Stable Prescriptions: New losartan 50 mg Tablet 50 mg PO DAILY Qty: 60 4RF atorvastatin 40 mg Tablet 40 mg PO BEDTIME Qty: 60 3RF clonidine HCl 0.1 mg Tablet 0.1 mg PO TID Qty: 90 4RF aspirin 81 mg Tablet,Delayed Release (Dr/Ec) 81 mg PO DAILY Qty: 60 3RF amlodipine 10 mg Tablet 10 mg PO DAILY Qty: 60 3RF hydralazine 50 mg Tablet 50 mg PO Q8H Qty: 90 4RF metoprolol tartrate 25 mg Tablet 25 mg PO Q12H Qty: 90 3RF bumetanide 1 mg tablet 1 mg PO BIDWM Qty: 60 3RF Aldactone 25 mg tablet 25 mg PO DAILY Qty: 90 3RF (DME) blood pressure test kit-large Kit See Rx Instructions .Route Qty: 1 0RF Rx Instructions: As directed albuterol sulfate 90 mcg/actuation HFA aerosol inhaler 2 inh inhalation Q8H Qty: 8.5 3RF Discontinued lisinopril 10 mg Tablet 10 mg PO DAILY 0RF Bp Meds Filled 09/09/21 30d/S See Rx Instructions .ROUTE .COMPLEX 0RF Rx Instructions: [facility] [phone] filled rxs on 09/09/21 30d/s for hydralazine 10mg take 2 tab q8h prn sbp greater than 180, hctz 25mg one tab daily,coreg 12.5mg po bid,norvasc 10mg daily pt states he hasnt taken in 4 months pt states he must have lost them Discharge Orders: Discharge Order (Routine); Ordered 10/27/21 Ordered By: Javi Ricci Other Ambulatory Orders: Basic Metabolic Panel (Routine) Timeframe: 3 Days Facility: [facility] - Location: Lab - Main Lab Ordered By: Javi Ricci Basic Metabolic Panel (Routine) Timeframe: 3 Days Facility: [facility] - Location: Lab - Main Lab Ordered By: Javi Ricci Sleep Study/Titration (Routine) Timeframe: 1 Day Location: Patient Preference Ordered By: Javi Ricci Referrals: [facility] [Other] - 11/09/21 2:00 pm (You are scheduled at the [facility] at this time to establish primary care. They are located in the [facility] building. The original primary care clinic is not accepting new patients. Please arrive a few min early to appointment. Please call them if you need to reschedule. ) Dr Reyes [Other] - 11/18/21 10:30 am (Your are scheduled to see a Space Sciences Director named Dr Reyes at the [facility] at date and time listed. Please call ahead of time to reschedule if unable to attend the appointment. Please try to attend if at all possible.) Discharge Diet: Cardiac Discharge Activity: Increase activity as tolerated Patient Instructions: Opioid Safety Activity Restrictions/Additional Instructions: You will need blood chemistry check biweekly for the next 3 weeks you it is reported that you see a returns supervisor and a PCP You need to check your blood pressure at same time every day, try to sit in a, room for 15 minutes before taking blood pressure, in case of any questions please do not hesitate to call our hospital and ask to directly call to Dr Ricci You will also need sleep study done Appointment has been made at returns supervisor in [place] Discharge Attestations Time Spent in Discharge Care*: less than 30 min Quality Metrics Clinical Quality Measures [ No reported AMI, CVA or VTE this stay] Coding Level of Care Code Acute Chg FW DC note Diagnoses KIMMY (acute kidney injury) N17.9
[2021-10-27] MEDS: cloNIDine 0.1 mg Tablet 0.2 MG PO (11:22)
[2021-10-27 11:33] LABS: Creatinine, Random Urine 146 mg/dL (20-320); Protein, Total, Random 34 mg/dL (5-25); Protein/Creatinine Ratio 0.233 (0.022-0.128); Protein/Creatinine Ratio 233 mg/g creat (22-128)
[2021-10-27 17:33] LABS: Metanephrine Total Free 221 pg/mL (<=205)
[2021-10-28 10:23] LABS: Albumin,Urine Random 74 %; Alpha-1-Globulins Urine Random 5 %; Alpha-2-Globulins Urine Random 4 %; Beta-Globulin,Urine Random 12 %; Gamma Globulin,Urine Random 6 %
[2021-10-28 12:02] LABS: ANCA Screen NEGATIVE (NEGATIVE)
== END 2021-10-27 12:30 | disposition home or self-care (01) | DRG 280 ==
LOC: ER 21:30 → ER IP 10-20 10:48 → CSU 10-20 11:33
PROVIDERS: Internal Medicine Nephrology; Admitting Provider Family Medicine; Emergency Provider Emergency Medicine; Visit Provider Internal Medicine
DX: I16.1 Hypertensive emergency (principal); I50.31 Acute diastolic (congestive) heart failure; I21.A1 Myocardial infarction type 2; I63.89 Other cerebral infarction; N17.9 Acute kidney failure, unspecified; I11.0 Hypertensive heart disease with heart failure; I27.20 Pulmonary hypertension, unspecified; R73.03 Prediabetes; D64.9 Anemia, unspecified; E66.9 Obesity, unspecified; Z79.82 Long term (current) use of aspirin; Z86.16 Personal history of COVID-19; Z68.34 Body mass index [BMI] 34.0-34.9, adult
CPT/HCPCS: 36415; 70450; 70551; 71045; 71275; 76770; 80048; 80053; 80061; 80306; 81003; 82044; 82088; 82533; 82550; 82570; 83036; 83516; 83735; 83835; 83880; 83883; 84100; 84155; 84156; 84165; 84166; 84244; 84439; 84443; 84478; 84484; 85025; 85378; 85610; 86225; 86235; 86334; 93005; 93970; 94640; 96365; 96366; 96372; 96375; 99283; 99285; C8929; J0360; J1644; J1940; J2270; J2405; J3490; J7611; J8597; Q9956; Q9967